=== PATIENT | female | born 1945 | race Two or more races ===

== ENCOUNTER 2017-10-10 07:14 | Outpatient (CLI) | payer MEDICARE, OTHER ==
[~2017-10-10 07:14] MED LIST: AMLO10TA2 PO; ATEN50TA PO; CALC500T71 PO; DICY10CA59 PO; FLUV50TA3 PO; NIAC-5 PO; OLOP5DRO RIGHTEYE; ONDA-25 PO; SIMV20TA6 PO
[2017-10-10] MEDS ORDERED: REGADENOSON 0.4 MG/5 ML DISP.SYRIN IVP ONE (08:30)
== END 2017-10-10 23:59 | disposition home or self-care (01) ==
LOC: NM 07:14
PROVIDERS: ATTEND Internal Medicine Interventional Cardiology
DX: I10 Essential (primary) hypertension (principal); R06.09 Other forms of dyspnea
CPT/HCPCS: 78452; A9502; J2785

== ENCOUNTER 2019-05-31 04:39 | Inpatient (IN) | payer MEDICARE, OTHER ==
[~2019-05-31] VITALS: Ht 154.9 cm; Wt 97.1 kg
[~2019-05-31 04:39] MED LIST changes: -AMLO10TA2 PO; +AMLO10TA7 PO; +CALC-1026 PO; -CALC500T71 PO; -ONDA-25 PO; +ONDA4TAB10 PO
[2019-05-31 04:50] VITALS: BP 131/73
--- NOTE | 2019-05-31 04:50 | NUR ---
CASH APPLICATIONS REPRESENTATIVE ADMITTING NOTE RECEIVED PATIENT IN UNIT VIA GURNEY, BROUGHT BY EMT. PATIENT A/OX4. PLACED ON TELE MONITOR; SR WITH HR 74 WITH OCCASIONAL PVCS. ON OXYGEN 2L VIA NASAL CANNULA, NO SOB AND RESPIRATORY DISTRESS NOTED, SATURATING 98%. IV SITE ON R AC 20G S/L, FLUSHING AND PATENT, SITE C/D/I. SAFETY MEASURES IN PLACE; CALL LIGHT WITHIN EASY REACH, BED IS LOCKED AND IN LOWEST POSITION, SIDE RAILS UP X2. ORIENTED PT TO ROOM. MADE AWARE OF PATIENT ARRIVAL. AWAITING FOR ORDERS. WILL CONT TO MONITOR PT CLOSELY.
[2019-05-31] MEDS ORDERED: CARB-93 PO (05:52)
[2019-05-31] MEDS ORDERED: MECL-102 PO (05:52)
[2019-05-31] MEDS ORDERED: OMEP20CA11 PO (05:52)
[2019-05-31] MEDS ORDERED: MEDR10TA10 PO (05:52)
[2019-05-31] MEDS ORDERED: DENO60DI SQ (05:55)
[2019-05-31] MEDS ORDERED: SERT50TA PO (05:55)
[2019-05-31] MEDS ORDERED: TRAM50TA2 PO (05:55)
--- NOTE | 2019-05-31 06:30 | NUR ---
MERCHANDISE FOR RESALE PURCHASING AGENT NOTES PAGED 3X. AWAITING FOR ORDERS.
--- NOTE | 2019-05-31 07:48 | NUR ---
NON LICENSED NUCLEAR EQUIPMENT OPERATOR CLOSING NOTES ENDORSED TO AM RN FOR LEWIS.
[2019-05-31 08:00] VITALS: BP 126/62
--- NOTE | 2019-05-31 08:00 | NUR ---
WOOD PROCESSING WORKER NOTES PT IN BED, AWAKE, ALERT AND ORIENTED, DENIES PAIN AT THIS TIME, STILL COMPLAINT OF DIZZINESS, NO HEADACHE OR N/V, CALL LIGHT WITHIN REACH, NEEDS ATTENDED.
[2019-05-31] MEDS ORDERED: MAGNESIUM HYDROXIDE 30 ML UDC PO PRN (08:30)
[2019-05-31] MEDS ORDERED: Z GUARD REMEDY 2 OZ OINT TP PRN (08:30)
[2019-05-31] MEDS ORDERED: ONDANSETRON HCL/PF 4 MG/2 ML VIAL IVP PRN (08:30)
[2019-05-31] MEDS ORDERED: HYDROCODONE/APAP 5/325MG 1 EACH TABLET PO PRN (08:30)
[2019-05-31] MEDS ORDERED: ZOLPIDEM TARTRATE 5 MG TABLET PO PRN (08:30)
[2019-05-31] MEDS ORDERED: ACETAMINOPHEN 325 MG TABLET PO PRN (08:30)
[2019-05-31] MEDS ORDERED: MAG HYDROX/AL HYDROX/SIMETH 30 ML UDC PO PRN (08:30)
[2019-05-31] MEDS ORDERED: DENOSUMAB 60 MG SQ SCH (09:00)
[2019-05-31] MEDS: PANTOPRAZOLE 40 MG TABLET.DR PO SCH (10:01)
[2019-05-31] MEDS: AMLODIPINE BESYLATE 10 MG TABLET PO SCH (10:02)
[2019-05-31] MEDS: SERTRALINE HCL 50 MG TABLET PO SCH (10:02)
[2019-05-31] MEDS: CARBIDOPA/LEVODOPA 25/100 MG 1 UDTAB PO SCH ×3 (10:02→17:25)
[2019-05-31] MEDS: CALCIUM CARBONATE (1250) 500 MG TABLET PO SCH ×2 (10:02→17:25)
[2019-05-31] MEDS: SIMVASTATIN 20 MG TABLET PO SCH (10:17)
[2019-05-31] MEDS: TRAMADOL HCL 50 MG TABLET PO SCH ×2 (10:20→17:25)
[2019-05-31 12:00] VITALS: BP 103/54
--- NOTE | 2019-05-31 13:00 | NUR ---
TURKISH LINE ATTENDANT NOTES PT IN BED, AWAKE, ALERT AND ORIENTED, NO COMPLAINT AT THIS TIME, NOT IN DISTRESS, SEEN BY DR. HENSON, COMPLIANT WITH CARE AND INTERVENTIONS, TOLERATING CURRENT DIET, CALL LIGHT WITHIN REACH, NEEDS ATTENDED.
[2019-05-31] MEDS: medroxyPROGESTERone ACET 5 MG TABLET PO SCH (13:04)
[2019-05-31 16:00] VITALS: BP_SYST 103; BP_SYST 110; BP_DIAS 54; BP_DIAS 68
--- NOTE | 2019-05-31 18:16 | NUR ---
CLIENT FINANCE ANALYST NOTES PT IN BED, AWAKE, ALERT AND ORIENTED, DENIES PAIN, NOT IN DISTRESS, WITH OCCASIONAL COMPLAINT OF DIZZINESS, INSTRUCTED PT NOT TO GET UP DUE TO RISK OF FALLING, VERBALIZED UNDERSTANDING, NO COMPLAINT OF HEADACHE, TOLERATES CURRENT DIET, CALL LIGHT WITHIN REACH, ALL NEEDS ATTENDED.
--- NOTE | 2019-05-31 19:45 | NUR ---
HEALTH CAREERS INSTRUCTOR NOTE: RECEIVED PT ON BED ALERT AND ORIENTED X3. ABLE TO MAKE NEEDS KNOWN. NO APPARENT DISTRESS NOTED. NO COMPLAINTS OF PAIN OR DISCOMFORT NOTED. ON 2LPM NASAL CANNULA, BREATHING EVEN AND UNLABORED WITH NORMAL RESPIRATIONS. ON TELE MONITOR SINUS RHYTHM HR 79 BPM. KEPT CLEAN, DRY AND COMFORTABLE. CALL LIGHT PLACED WITHIN REACH. SIDE RAILS X2. BED ALARM ON. BED LOCKED AND IN LOWEST POSITION. WILL CONTINUE TO MONITOR PT.
[2019-05-31 20:00] VITALS: BP 135/75
[2019-05-31] MEDS: FLUVOXAMINE MALEATE 50 MG TABLET PO SCH (21:50)
[2019-06-01] VITALS (7 sets, daily range): BP systolic 126–156; BP diastolic 51–79
--- NOTE | 2019-06-01 06:48 | NUR ---
AIR QUALITY TECHNICIAN NOTE: NO CHANGES NOTED THROUGHOUT THE SHIFT. NO APPARENT DISTRESS NOTED. DENIES PAIN AND DISCOMFORT AT THIS TIME. ON 2LPM NASAL CANNULA, NO SOB NOTED. ON TELE MONITOR SINUS RHYTHM HR 84BPM. KEPT CLEAN, DRY AND COMFORTABLE. SAFETY AND FALL PRECAUTIONS OBSERVATION NOTED. WILL ENDORSE TO DAY SHIFT RN FOR CONTINUITY OF CARE.
--- NOTE | 2019-06-01 07:20 | NUR ---
RN OPENING NOTES RECEIVED PATIENT ON BED ALERT AND ORIENTED X3, ABLE TO MAKE NEEDS KNOWN. NO APPARENT DISTRESS NOTED. NO COMPLAINTS OF PAIN OR DISCOMFORT NOTED. ON 2LPM NASAL CANNULA, BREATHING EVEN AND UNLABORED WITH NORMAL RESPIRATIONS. ON TELE MONITOR SINUS RHYTHM HR 81 WITH PVCs. KEPT CLEAN, DRY AND COMFORTABLE. CALL LIGHT PLACED WITHIN REACH. SIDE RAILS X2. BED ALARM ON. BED LOCKED AND IN LOWEST POSITION. WILL CONTINUE TO MONITOR ACCORDINGLY
[2019-06-01 07:26] LABS: BASOPHILS # (AUTO) 0.1 /CMM (0.0-0.2); BASOPHILS % (AUTO) 0.9 % (0.0-2.0); EOSINOPHILS % (AUTO) 6.2 % (0.0-6.0); HEMATOCRIT 40 % (33-45); HEMOGLOBIN 13.2 g/dL (11.5-14.8); LYMPHOCYTES # (AUTO) 1.4 /CMM (0.8-4.8); MEAN CORPUSCULAR HGB CONC 33 g/dl (31.0-36.0); MEAN CORPUSCULAR VOLUME 87 fL (82-100); MONOCYTES # (AUTO) 0.6 /CMM (0.1-1.30); MONOCYTES % (AUTO) 10.5 % (2.0-12.0); NEUTROPHILS # (AUTO) 3.3 /CMM (1.8-8.9); NEUTROPHILS % (AUTO) 57.4 % (43.0-81.0); PLATELET COUNT (AUTO) 125 /CMM (150-450); WHITE BLOOD COUNT (AUTO) 5.7 K/uL (4.3-11.0)
[2019-06-01 07:30] LABS: ALANINE AMINOTRANSFERASE 15 U/L (12-78); ALBUMIN 3.3 g/dL (3.4-5.0); ALKALINE PHOSPHATASE 80 U/L (46-116); ASPARTATE AMINOTRANSFERASE 13 U/L (15-37); BILIRUBIN,TOTAL 0.9 mg/dL (0.2-1.0); CALCIUM, SERUM 8.9 mg/dL (8.5-10.1); CARBON DIOXIDE 34 mmol/L (21-32); CHLORIDE 104 mmol/L (98-107); GLUCOSE 87 mg/dL (74-106); MAGNESIUM 1.9 mg/dL (1.8-2.4); PHOSPHORUS 4.2 mg/dL (2.5-4.9); POTASSIUM 3.5 mmol/L (3.5-5.1); SODIUM SERUM 142 mmol/L (136-145); UREA NITROGEN, BLOOD 11 mg/dL (7-18)
[2019-06-01 07:32] LABS: CHOLESTEROL 102 mg/dL (<200); HDL CHOLESTEROL 37 mg/dL (40-60); LDL 52 mg/dL (0-99); TRIGLYCERIDES 114 mg/dL (30-150)
[2019-06-01] MEDS: PANTOPRAZOLE 40 MG TABLET.DR PO SCH (08:28)
[2019-06-01] MEDS: SERTRALINE HCL 50 MG TABLET PO SCH (08:28)
[2019-06-01] MEDS: SIMVASTATIN 20 MG TABLET PO SCH (08:29)
[2019-06-01] MEDS: TRAMADOL HCL 50 MG TABLET PO SCH ×2 (08:29→16:05)
[2019-06-01] MEDS: CALCIUM CARBONATE (1250) 500 MG TABLET PO SCH ×2 (08:29→16:05)
[2019-06-01] MEDS: CARBIDOPA/LEVODOPA 25/100 MG 1 UDTAB PO SCH ×3 (08:29→16:05)
[2019-06-01] MEDS: AMLODIPINE BESYLATE 10 MG TABLET PO SCH (08:30)
[2019-06-01] MEDS: medroxyPROGESTERone ACET 5 MG TABLET PO SCH (08:31)
--- NOTE | 2019-06-01 10:29 | NUR ---
WOUND CARE CONSULT: PT PRESENTS WITH INTACT SKIN AND SOME DRYNESS TO ARMS AND LEGS, PRESENT ON ADMISSION. RECOMMENDATIONS MADE FOR SKIN PROTECTION. DISCUSSED WITH NURSING STAFF. PT IS CONTINENT AND INDEPENDENT WITH BED MOBILITY. WILL SEE PRN.
[2019-06-01] MEDS: MINERAL OIL/PETROLATUM,WHITE 120 GM JAR TP SCH (12:36)
[2019-06-01] MEDS: POTASSIUM CHLORIDE 20 MEQ TAB.PRT.SR PO SCH ×3 (12:36→14:42)
[2019-06-01] MEDS: FUROSEMIDE 40 MG/4 ML VIAL IV SCH ×2 (12:36→16:06)
[2019-06-01] MEDS: VALSARTAN 80 MG TABLET PO SCH (12:38)
--- NOTE | 2019-06-01 18:42 | NUR ---
RN CLOSING NOTES PATIENT IN STABLE CONDITION. ALL NEED ATTENDED AND PROVIDED. ALL DUE MEDICATIONS GIVEN ORDERED. ASSISTED WITH ADLS. KEPT PATIENT SAFE AND COMFORTABLE. BED IN LOW/LOCKED POSITION, SIDERAILS UPX2, CALL LIGHT IN REACH. WILL ENDORSED TO NIGHT RN FOR LEWIS.
--- NOTE | 2019-06-01 19:41 | NUR ---
REHAB THERAPIST NOTES RECEIVED PT ON BED. A/O X 4. ON ROOM AIR NO RESPIRATORY DISTRESS NOTED. IV ACCESS RACG 20 SL PATENT AND INTACT. HEAD OF BED ELEVATED. SIDE RAILS UP. CALL LIGHT WITHIN REACH. BED ALARM ON. WILL CONTINUE TO MONITOR PT CLOSELY.
[2019-06-01] MEDS: FLUVOXAMINE MALEATE 50 MG TABLET PO SCH (21:12)
[2019-06-02] VITALS: BP 135/80
[2019-06-02 04:00] VITALS: BP 117/70
[2019-06-02 06:26] LABS: BASOPHILS # (AUTO) 0.1 /CMM (0.0-0.2); EOSINOPHILS % (AUTO) 6.7 % (0.0-6.0); HEMATOCRIT 41 % (33-45); HEMOGLOBIN 13.5 g/dL (11.5-14.8); LYMPHOCYTES # (AUTO) 1.4 /CMM (0.8-4.8); LYMPHOCYTES % (AUTO) 24.6 % (20.0-44.0); MEAN CORPUSCULAR HGB CONC 33 g/dl (31.0-36.0); MEAN CORPUSCULAR VOLUME 87 fL (82-100); MONOCYTES # (AUTO) 0.6 /CMM (0.1-1.30); MONOCYTES % (AUTO) 11.3 % (2.0-12.0); NEUTROPHILS # (AUTO) 3.1 /CMM (1.8-8.9); NEUTROPHILS % (AUTO) 56.4 % (43.0-81.0); PLATELET COUNT (AUTO) 141 /CMM (150-450); RED BLOOD CELL COUNT(AUTO) 4.71 MIL/uL (4.0-5.2); WHITE BLOOD COUNT (AUTO) 5.6 K/uL (4.3-11.0)
[2019-06-02 06:45] LABS: ALANINE AMINOTRANSFERASE 22 U/L (12-78); ALBUMIN 3.4 g/dL (3.4-5.0); ALKALINE PHOSPHATASE 86 U/L (46-116); ASPARTATE AMINOTRANSFERASE 15 U/L (15-37); BILIRUBIN,TOTAL 0.9 mg/dL (0.2-1.0); CALCIUM, SERUM 8.7 mg/dL (8.5-10.1); CARBON DIOXIDE 34 mmol/L (21-32); CHLORIDE 101 mmol/L (98-107); CREATININE 1.1 mg/dL (0.6-1.3); GLUCOSE 84 mg/dL (74-106); MAGNESIUM 1.9 mg/dL (1.8-2.4); PHOSPHORUS 4.2 mg/dL (2.5-4.9); POTASSIUM 3.7 mmol/L (3.5-5.1); SODIUM SERUM 140 mmol/L (136-145); TOTAL PROTEIN, SERUM 6.4 g/dL (6.4-8.2); UREA NITROGEN, BLOOD 16 mg/dL (7-18)
--- NOTE | 2019-06-02 07:26 | NUR ---
MS RN NOTES NO ACUTE CHANGES NOTED DURING THE SHIFT. PROVIDED COMFORT AND SAFETY. WILL ENDORSE TO THE AM NURSE FOR CONTINUITY OF CARE.
[2019-06-02 08:00] VITALS: BP 127/74
--- NOTE | 2019-06-02 08:00 | NUR ---
RN OPENING NOTES RECEIVED PATIENT ON BED ALERT AND ORIENTED X3, ABLE TO MAKE NEEDS KNOWN. NO APPARENT DISTRESS NOTED. NO COMPLAINTS OF PAIN OR DISCOMFORT NOTED.BREATHING EVEN AND UNLABORED WITH NORMAL RESPIRATIONS. AMBULATES AD ALONSO WITH SLOWLY,STEADY GAIT.KEPT CLEAN, DRY AND COMFORTABLE. CALL LIGHT PLACED WITHIN REACH. SIDE RAILS X2. BED ALARM ON. BED LOCKED AND IN LOWEST POSITION. WILL CONTINUE TO MONITOR ACCORDINGLY
[2019-06-02] MEDS: CARBIDOPA/LEVODOPA 25/100 MG 1 UDTAB PO SCH ×3 (09:34→17:47)
[2019-06-02] MEDS: SERTRALINE HCL 50 MG TABLET PO SCH (09:35)
[2019-06-02] MEDS: CALCIUM CARBONATE (1250) 500 MG TABLET PO SCH ×2 (09:35→17:47)
[2019-06-02] MEDS: AMLODIPINE BESYLATE 10 MG TABLET PO SCH (09:35)
[2019-06-02] MEDS: SIMVASTATIN 20 MG TABLET PO SCH (09:35)
[2019-06-02] MEDS: TRAMADOL HCL 50 MG TABLET PO SCH ×2 (09:35→17:48)
[2019-06-02] MEDS: VALSARTAN 80 MG TABLET PO SCH (09:36)
[2019-06-02] MEDS: PANTOPRAZOLE 40 MG TABLET.DR PO SCH (09:42)
[2019-06-02] MEDS: MINERAL OIL/PETROLATUM,WHITE 120 GM JAR TP SCH (09:44)
[2019-06-02] MEDS: medroxyPROGESTERone ACET 5 MG TABLET PO SCH (09:45)
[2019-06-02 16:00] VITALS: BP 116/64
--- NOTE | 2019-06-02 19:00 | NUR ---
PT RESTING IN BED WATCHING TV DENYING ANY PAIN OR DISTRESS.CALL LIGHT PLACED WITHIN REACH.
[2019-06-02 20:00] VITALS: BP 136/60
[2019-06-02] MEDS: FLUVOXAMINE MALEATE 50 MG TABLET PO SCH (21:54)
[2019-06-02 22:00] VITALS: BP 136/60
[2019-06-03 04:00] VITALS: BP 114/60
[2019-06-03 07:01] LABS: BASOPHILS % (AUTO) 0.7 % (0.0-2.0); EOSINOPHILS % (AUTO) 5.4 % (0.0-6.0); HEMATOCRIT 40 % (33-45); HEMOGLOBIN 13.2 g/dL (11.5-14.8); LYMPHOCYTES # (AUTO) 1.4 /CMM (0.8-4.8); LYMPHOCYTES % (AUTO) 25.8 % (20.0-44.0); MEAN CORPUSCULAR HGB CONC 33 g/dl (31.0-36.0); MEAN CORPUSCULAR VOLUME 87 fL (82-100); MONOCYTES # (AUTO) 0.6 /CMM (0.1-1.30); MONOCYTES % (AUTO) 11.8 % (2.0-12.0); NEUTROPHILS % (AUTO) 56.3 % (43.0-81.0); PLATELET COUNT (AUTO) 133 /CMM (150-450); RED BLOOD CELL COUNT(AUTO) 4.59 MIL/uL (4.0-5.2); WHITE BLOOD COUNT (AUTO) 5.3 K/uL (4.3-11.0)
[2019-06-03 07:24] LABS: CALCIUM, SERUM 8.8 mg/dL (8.5-10.1); CARBON DIOXIDE 33 mmol/L (21-32); CHLORIDE 105 mmol/L (98-107); GLUCOSE 91 mg/dL (74-106); MAGNESIUM 2.1 mg/dL (1.8-2.4); PHOSPHORUS 3.8 mg/dL (2.5-4.9); SODIUM SERUM 143 mmol/L (136-145); UREA NITROGEN, BLOOD 17 mg/dL (7-18)
[2019-06-03 08:00] VITALS: BP 130/59
[2019-06-03] MEDS: CALCIUM CARBONATE (1250) 500 MG TABLET PO SCH (08:04)
[2019-06-03] MEDS: TRAMADOL HCL 50 MG TABLET PO SCH (08:05)
[2019-06-03] MEDS: PANTOPRAZOLE 40 MG TABLET.DR PO SCH (08:05)
[2019-06-03] MEDS: AMLODIPINE BESYLATE 10 MG TABLET PO SCH (08:05)
[2019-06-03] MEDS: SIMVASTATIN 20 MG TABLET PO SCH (08:05)
[2019-06-03] MEDS: SERTRALINE HCL 50 MG TABLET PO SCH (08:06)
[2019-06-03] MEDS: MINERAL OIL/PETROLATUM,WHITE 120 GM JAR TP SCH (08:06)
[2019-06-03] MEDS: CARBIDOPA/LEVODOPA 25/100 MG 1 UDTAB PO SCH ×2 (08:06→12:54)
[2019-06-03] MEDS: VALSARTAN 80 MG TABLET PO SCH (08:06)
[2019-06-03] MEDS: medroxyPROGESTERone ACET 5 MG TABLET PO SCH (08:07)
[2019-06-03 10:00] VITALS: BP 130/59
[2019-06-03] MEDS ORDERED: VALS160T2 PO (11:23)
--- NOTE | 2019-06-03 14:20 | NUR ---
PROCESSING REP NOTES PT STABLE AT DISCHARGE. IV AND ID REMOVED BEFORE DISCHARGE. ALL DISCHARGE PAPER WORK EXPLAINED, SIGNED, COPIED AND PROVIDED TO THE PATIENT. REPORT GIVEN TO BIENVENIDO AT [place]. ALL BELONGINGS TAKEN WITH PATIENT AT DISCHARGE. PT TAKEN VIA GURNEY BY 2 ELECTRICIAN SHIP. Addendum: 06/03/19 at 1514 by GISELA CHANCE RN PT REFUSED PICTURES AT DISCHARGE.
== END 2019-06-03 14:20 | DRG 308 ==
LOC: TELE1 04:39 → MEDSG1 06-02 05:07
PROVIDERS: ADMIT Family Medicine; ATTEND Nurse Practitioner Acute Care
DX: R00.1 Bradycardia, unspecified (principal); I50.33 Acute on chronic diastolic (congestive) heart failure; Z68.41 Body mass index [BMI] 40.0-44.9, adult; I11.0 Hypertensive heart disease with heart failure; D63.8 Anemia in other chronic diseases classified elsewhere; E87.6 Hypokalemia; E78.5 Hyperlipidemia, unspecified; F90.9 Attention-deficit hyperactivity disorder, unspecified type; F41.9 Anxiety disorder, unspecified; Z96.659 Presence of unspecified artificial knee joint; Z87.891 Personal history of nicotine dependence; T44.7X5A Adverse effect of beta-adrenoreceptor antagonists, initial encounter; Y92.89 Other specified places as the place of occurrence of the external cause; G20 Parkinson's disease; E66.9 Obesity, unspecified; J98.4 Other disorders of lung
CPT/HCPCS: 36415; 71045-TC; 80048-TC; 80053-TC; 80061-TC; 83735-TC; 84100-TC; 85025-TC; 87081-TC; 93307-TC; 93880-TC; G0378; J1940

== ENCOUNTER 2019-08-23 12:59 | Inpatient (IN) | payer MEDICARE, OTHER ==
[~2019-08-23] VITALS: Ht 154.9 cm; Wt 97.1 kg
[~2019-08-23 12:59] MED LIST changes: -ATEN50TA PO; +CARB-93 PO; +DENO60DI SQ; -DICY10CA59 PO; +MECL-102 PO; +MEDR10TA10 PO; -NIAC-5 PO; -OLOP5DRO RIGHTEYE; +OMEP20CA11 PO; -ONDA4TAB10 PO; +SERT50TA PO; +TRAM50TA2 PO; +VALS160T2 PO
--- NOTE | 2019-08-23 13:14 | NUR ---
pt marvin from facility for dizziness on and off, gen weakness, pt aaox4, -sob, nad noted, vss, pending md [place]
[2019-08-23] MEDS ORDERED: IV NS 0.9% 500 ML BAG IV ONE (13:30)
[2019-08-23 13:36] LABS: BASOPHILS # (AUTO) 0.1 /CMM (0.0-0.2); BASOPHILS % (AUTO) 1.8 % (0.0-2.0); EOSINOPHILS % (AUTO) 4.7 % (0.0-6.0); HEMATOCRIT 46 % (33-45); HEMOGLOBIN 15.4 g/dL (11.5-14.8); LYMPHOCYTES # (AUTO) 1.4 /CMM (0.8-4.8); LYMPHOCYTES % (AUTO) 21.1 % (20.0-44.0); MEAN CORPUSCULAR HGB CONC 34 g/dl (31.0-36.0); MEAN CORPUSCULAR VOLUME 87 fL (82-100); MONOCYTES # (AUTO) 0.5 /CMM (0.1-1.30); MONOCYTES % (AUTO) 7.6 % (2.0-12.0); NEUTROPHILS # (AUTO) 4.4 /CMM (1.8-8.9); NEUTROPHILS % (AUTO) 64.8 % (43.0-81.0); PLATELET COUNT (AUTO) 157 /CMM (150-450); RED BLOOD CELL COUNT(AUTO) 5.26 MIL/uL (4.0-5.2); WHITE BLOOD COUNT (AUTO) 6.8 K/uL (4.3-11.0)
[2019-08-23 13:47] LABS: CALCIUM, SERUM 9.7 mg/dL (8.5-10.1); CARBON DIOXIDE 30 mmol/L (21-32); CHLORIDE 102 mmol/L (98-107); CREATININE 1.1 mg/dL (0.6-1.3); GLUCOSE 111 mg/dL (74-106); POTASSIUM 3.7 mmol/L (3.5-5.1); SODIUM SERUM 140 mmol/L (136-145); UREA NITROGEN, BLOOD 9 mg/dL (7-18)
[2019-08-23 13:52] LABS: ALANINE AMINOTRANSFERASE 17 U/L (12-78); ALKALINE PHOSPHATASE 91 U/L (46-116); ASPARTATE AMINOTRANSFERASE 19 U/L (15-37); BILIRUBIN,DIRECT 0.2 mg/dL (0.0-0.2); BILIRUBIN,TOTAL 0.9 mg/dL (0.2-1.0); TOTAL PROTEIN, SERUM 7.2 g/dL (6.4-8.2)
--- NOTE | 2019-08-23 15:00 | NUR ---
CALLED NURSING SUP FOR BED.
--- NOTE | 2019-08-23 15:04 | NUR ---
PAGED [facility].
[2019-08-23] MEDS ORDERED: ATEN50TA PO (15:19)
[2019-08-23] MEDS ORDERED: FLUV50TA10 PO (15:19)
[2019-08-23] MEDS ORDERED: DICY10AM2 PO (15:19)
[2019-08-23] MEDS ORDERED: CALC500T51 PO (15:19)
[2019-08-23] MEDS ORDERED: HYDR59LO5 TP (15:19)
--- NOTE | 2019-08-23 15:20 | NUR ---
NURSING SUP GAVE BED [id number].
--- NOTE | 2019-08-23 15:23 | NUR ---
[facility] CALLED FOR RICHIE.
[2019-08-23] MEDS ORDERED: MAGNESIUM HYDROXIDE 30 ML UDC PO PRN (16:00)
[2019-08-23] MEDS ORDERED: ACETAMINOPHEN 325 MG TABLET PO PRN (16:00)
[2019-08-23] MEDS ORDERED: Z GUARD REMEDY 2 OZ OINT TP PRN (16:00)
[2019-08-23] MEDS ORDERED: ZOLPIDEM TARTRATE 5 MG TABLET PO PRN (16:00)
[2019-08-23] MEDS ORDERED: ONDANSETRON HCL/PF 4 MG/2 ML VIAL IVP PRN (16:00)
[2019-08-23] MEDS ORDERED: MAG HYDROX/AL HYDROX/SIMETH 30 ML UDC PO PRN (16:00)
[2019-08-23] MEDS ORDERED: HYDROCODONE/APAP 5/325MG 1 EACH TABLET PO PRN (16:00)
[2019-08-23 16:40] VITALS: BP 148/80
--- NOTE | 2019-08-23 16:44 | NUR ---
report given to erich ibarra for luna pt lamin be transported to 3rd floor
[2019-08-23] MEDS ORDERED: DICYCLOMINE HCL INJ 20 MG/2 ML AMPUL IM SCH (17:00)
[2019-08-23] MEDS ORDERED: HYDROCORTISONE 2.5% LOTION 59 ML BOTTLE TP SCH (17:00)
[2019-08-23] MEDS: CALCIUM CARBONATE (1250) 500 MG TABLET PO SCH (17:14)
--- NOTE | 2019-08-23 17:52 | NUR ---
CREATIVE TECHNOLOGIST ADMITTING NOTES ADMITTED A 74 Y/O FEMALE TO UNIT VIA [facility] ACCOMPANIED BY ESofiaR NURSE TIFF. A/O X4. ABLE TO MAKE NEEDS KNOWN AND AMBULATORY WITH FOUR WHEEL WALKER. PT ORIENTED TO ROOM AND STAFF. V/S TAKEN AND RECORDED. PT ON 02 VIA N/C @ 2LPM, TOLERATING WELL WITH NO SOB NOTED. PLACED ON TELE MONITOR WITH CURRENT READING OF SINUS TACH WITH UNIFOCAL BIGEMINI WITH HR OF 102, NO C/O CARDIAC DISTRESS VOICED AT THIS TIME. PT WITH IV ACCESS ON R AC G#20 INTACT, PATENT AND FLUSHES WELL WITH DRESSING C/D/I. SAFETY MEASURES INITIATED: CALL LIGHT PLACED WITHIN EASY REACH OF PT. BED IS LOCKED AND IN LOWEST POSSIBLE POSITION WITH SIDE RAILS UP X2. MADE AWARE OF PATIENT ARRIVAL AND ORDERS MADE. WILL CONT TO MONITOR PT CLOSELY.
--- NOTE | 2019-08-23 18:29 | NUR ---
RN NOTES DR HENSON CAME TO UNIT, INFORMED HIM THAT PT'S TELEMONITORING SHOWS SINUS TACH WITH HR OF [address] HENSON WENT TO SEE, TALK AND EVALUATE PT. DR HENSON SAID THAT SHE IS FOR CARDIAC CONSULT BY DR SCOTT. WILL CONTINUE TO MONITOR.
--- NOTE | 2019-08-23 18:41 | NUR ---
MEDICAL ARTIST CLOSING NOTES PT AWAKE AND RESTING IN BED AT MODERATE HIGH BACKREST POSITION. A/O X4. ABLE TO MAKE NEEDS KNOWN AND ABLE TO AMBULATE WITH FOUR WHEEL WALKER. ON 02 VIA N/C AT 2LPM, TOLERATING WELL WITH NO SOB NOTED. ON TELE MONITORING SHOWS SINUS TACH WITH UNIFOCAL BIGEMINI WITH HR OF 95-110, NO C/O CARDIAC DISTRESS VOICED. IV ACCESS ON R AC G#20 INTACT, PATENT AND FLUSHES WELL WITH DRESSING C/D/I. SAFETY MEASURES KEPT IN PLACE: CALL LIGHT WITHIN EASY REACH OF PT. BED IS LOCKED AND IN LOWEST POSSIBLE POSITION WITH SIDE RAILS UP X2. WILL ENDORSE TO MITER CUTTER NURSE FOR LEWIS.
--- NOTE | 2019-08-23 19:30 | NUR ---
SOLDERER ASSEMBLY REPAIR OPENING NOTES RECEIVED PATIENT IN BED AWAKE, ALERT AND ORIENTED X4, VERBALLY RESPONSIVE, ABLE TO MAKE NEEDS KNOWN. SR WITH BIGEMINY ON TELE MONITOR. BREATHING EVEN AND UNLABORED. NO SOB NOTED. ON 2LPM NC. DENIES PAIN OR DISCOMFORT. DENIES N/V. IV ON RIGHT AC INTACT AND PATENT. SKIN DRY AND WARM TO TOUCH. AFEBRILE. ALL OTHER NEEDS ATTENDED TO. SAFETY MEASURES IN PLACE. CALL LIGHT WITHIN REACH. WILL CONTINUE TO MONITOR.
[2019-08-23 20:00] VITALS: BP 150/82
[2019-08-24] VITALS (7 sets, daily range): BP systolic 133–179; BP diastolic 66–86
--- NOTE | 2019-08-24 06:43 | NUR ---
SAND SYSTEM OPERATOR CLOSING NOTES PATIENT RESTING IN BED. NO ACUTE CHANGES THROUGHOUT SHIFT. SR WITH BIGEMINY ON TELE MONITOR. BREATHING EVEN AND UNLABORED. NO SOB NOTED. ON 2LPM NC. DENIES PAIN OR DISCOMFORT. DENIES N/V. IV ON RIGHT AC INTACT AND PATENT. ALL OTHER NEEDS ATTENDED TO. SAFETY MEASURES IN PLACE. CALL LIGHT WITHIN REACH. WILL ENDORSE TO ONCOMING NURSE FOR LEWIS.
[2019-08-24 07:26] LABS: BASOPHILS # (AUTO) 0.1 /CMM (0.0-0.2); BASOPHILS % (AUTO) 0.9 % (0.0-2.0); EOSINOPHILS % (AUTO) 5.5 % (0.0-6.0); HEMATOCRIT 42 % (33-45); HEMOGLOBIN 13.7 g/dL (11.5-14.8); LYMPHOCYTES # (AUTO) 1.4 /CMM (0.8-4.8); LYMPHOCYTES % (AUTO) 22.7 % (20.0-44.0); MEAN CORPUSCULAR HGB CONC 33 g/dl (31.0-36.0); MEAN CORPUSCULAR VOLUME 86 fL (82-100); MONOCYTES # (AUTO) 0.5 /CMM (0.1-1.30); MONOCYTES % (AUTO) 9.2 % (2.0-12.0); NEUTROPHILS # (AUTO) 3.7 /CMM (1.8-8.9); NEUTROPHILS % (AUTO) 61.7 % (43.0-81.0); PLATELET COUNT (AUTO) 128 /CMM (150-450); RED BLOOD CELL COUNT(AUTO) 4.81 MIL/uL (4.0-5.2)
[2019-08-24 07:52] LABS: CALCIUM, SERUM 8.7 mg/dL (8.5-10.1); MAGNESIUM 1.9 mg/dL (1.8-2.4); PHOSPHORUS 3.6 mg/dL (2.5-4.9); POTASSIUM 3.9 mmol/L (3.5-5.1)
[2019-08-24] MEDS: SIMVASTATIN 20 MG TABLET PO SCH (09:00)
[2019-08-24] MEDS: CALCIUM CARBONATE (1250) 500 MG TABLET PO SCH ×3 (09:00→18:24)
[2019-08-24] MEDS: HYDROCORTISONE 2.5% CREAM 28.4 GM TUBE TP SCH ×2 (09:12→18:25)
[2019-08-24] MEDS: VALSARTAN 80 MG TABLET PO SCH (09:13)
[2019-08-24] MEDS: ENOXAPARIN SODIUM 40 MG/0.4 ML DISP.SYRIN SQ SCH (10:45)
[2019-08-24] MEDS: METOPROLOL TARTRATE 25 MG TABLET PO SCH ×2 (11:23→21:12)
--- NOTE | 2019-08-24 19:10 | NUR ---
LOCK AND DAM REPAIRER NOTE RECEIVED PT IN STABLE CONDITION A/O X4, CURRENTLY IN BED SPEAKING ON THE PHONE. NO SIGNS OF SOB OR DISTRESS, NO C/O PAIN OR N/V. TELE MONITOR: SINUS 103 WITH BIGEMINY NOTED. IV IN RAC #[address] S/L. ALL CURRENT NEEDS ATTENDED TO. BED LOW, LOCKED, UPPER RAILS UP, AND CALL LIGHT WITHIN REACH. WILL CONT. TO MONITOR.
--- NOTE | 2019-08-25 06:24 | NUR ---
MS RN NOTE PT REMAINS IN STABLE CONDITION A/O X4, CURRENTLY IN BED RESTING. NO SIGNS OF SOB OR DISTRESS, NO C/O PAIN OR N/V. TELE MONITOR: SINUS 100 WITH BIGEMINY NOTED. IV IN RAC #[address] S/L. ALL CURRENT NEEDS ATTENDED TO. BED LOW, LOCKED, UPPER RAILS UP, AND CALL LIGHT WITHIN REACH. WILL CONT. TO MONITOR AND ENDORSE TO NEXT SHIFT FOR LEWIS.
[2019-08-25 06:36] LABS: BASOPHILS # (AUTO) 0.1 /CMM (0.0-0.2); BASOPHILS % (AUTO) 0.9 % (0.0-2.0); EOSINOPHILS % (AUTO) 5.3 % (0.0-6.0); HEMATOCRIT 45 % (33-45); HEMOGLOBIN 14.8 g/dL (11.5-14.8); LYMPHOCYTES # (AUTO) 1.2 /CMM (0.8-4.8); LYMPHOCYTES % (AUTO) 20.8 % (20.0-44.0); MEAN CORPUSCULAR HGB CONC 33 g/dl (31.0-36.0); MEAN CORPUSCULAR VOLUME 86 fL (82-100); MONOCYTES # (AUTO) 0.5 /CMM (0.1-1.30); MONOCYTES % (AUTO) 8.6 % (2.0-12.0); NEUTROPHILS # (AUTO) 3.6 /CMM (1.8-8.9); NEUTROPHILS % (AUTO) 64.4 % (43.0-81.0); PLATELET COUNT (AUTO) 139 /CMM (150-450); RED BLOOD CELL COUNT(AUTO) 5.22 MIL/uL (4.0-5.2); WHITE BLOOD COUNT (AUTO) 5.6 K/uL (4.3-11.0)
[2019-08-25 06:47] LABS: CALCIUM, SERUM 9.4 mg/dL (8.5-10.1); CREATININE 0.9 mg/dL (0.6-1.3); POTASSIUM 4.7 mmol/L (3.5-5.1)
[2019-08-25 08:00] VITALS: BP 156/71
--- NOTE | 2019-08-25 08:00 | NUR ---
MS RN NOTE PT REMAINS IN STABLE CONDITION A/O X4, CURRENTLY IN BED RESTING EATING BREAKFAST. DENIES SOB OR DISTRESS,SEEN BY DR MOY (CARDIO) NO C/O PAIN OR N/V. TELE MONITOR: SINUS 100 WITH BIGEMINY NOTED. IV IN RAC #[address] S/L. BED LOW, LOCKED, UPPER RAILS UP, AND CALL LIGHT WITHIN REACH. WILL CONT. TO MONITOR
[2019-08-25] MEDS: CALCIUM CARBONATE (1250) 500 MG TABLET PO SCH ×3 (08:53→17:43)
[2019-08-25] MEDS: SIMVASTATIN 20 MG TABLET PO SCH (08:54)
[2019-08-25] MEDS: METOPROLOL TARTRATE 25 MG TABLET PO SCH ×2 (08:54→21:31)
[2019-08-25] MEDS: VALSARTAN 80 MG TABLET PO SCH (08:55)
[2019-08-25] MEDS: ENOXAPARIN SODIUM 40 MG/0.4 ML DISP.SYRIN SQ SCH (08:56)
[2019-08-25] MEDS: HYDROCORTISONE 2.5% CREAM 28.4 GM TUBE TP SCH ×2 (08:57→17:44)
--- NOTE | 2019-08-25 11:41 | NUR ---
WOUND CARE CONSULT: PT PRESENTS MOSTLY CONTINENT AND INDEPENDENT WITH BED MOBILITY. PT HAS MOISTURE TO SKIN FOLDS AND NOTED TO HAVE RED SPOTS ON CHEST/NECK AREA, PRESENT ON ADMISSION. DEFER TO MD FOR RED SPOTS. RECOMMENDATIONS MADE FOR SKIN PROTECTION. DISCUSSED WITH NURSING STAFF. WILL SEE PRN. CURRENT MORELIA SCORE IS 20. Addendum: 08/25/19 at 1142 by MADISON DE LA GARZA WNDNU Amended: Links added.
[2019-08-25 16:00] VITALS: BP 133/72
--- NOTE | 2019-08-25 19:18 | NUR ---
DISCHARGE TO SNF ON HOLD PER TOOL TENDER.PT DENIES ANY PAIN OR DISTRESS.PT WATCHING TV.CALL LIGHT PLACED WITHIN REACH.
--- NOTE | 2019-08-25 19:51 | NUR ---
RN OPENING NOTES RECEIVED PT IN BED, AWAKE ALERT ORIENTED X4, BREATHING EVEN AND UNLABORED ON 2L O2 NC, IN NO APPARENT PAIN OR DISCOMFORT AT THIS TIME, IV ACCESS ON THE R AC 20G SL. BED IN LOWEST LOCKED POSITION, CALL LIGHT WITHIN REACH AT ALL TIMES, WILL CONTINUE TO MONITOR FREQUENTLY.
[2019-08-25] MEDS ORDERED: FLUVOXAMINE MALEATE 50 MG TABLET PO SCH (22:00)
[2019-08-26 00:24] VITALS: BP 128/59
[2019-08-26 05:22] VITALS: BP 124/72
--- NOTE | 2019-08-26 06:32 | NUR ---
RN CLOSING NOTES PT REMAINS IN BED, AWAKE ALERT ORIENTED X4, BREATHING EVEN AND UNLABORED ON 2L O2 NC, IN NO APPARENT PAIN OR DISCOMFORT AT THIS TIME, IV ACCESS ON THE R AC 20G SL. BED IN LOWEST LOCKED POSITION, CALL LIGHT WITHIN REACH AT ALL TIMES, WILL ENDORSE TO DAY NURSE FOR LEWIS
[2019-08-26 07:00] VITALS: BP 130/58
[2019-08-26 08:00] VITALS: BP 130/58
--- NOTE | 2019-08-26 08:00 | NUR ---
MS RN OPENING NOTES RECEIVED PT IN BED, AWAKE ALERT ORIENTED X4, BREATHING EVEN AND UNLABORED ON 2L O2 NC, DENIES PAIN OR DISCOMFORT , IV ACCESS ON THE R AC 20G SL. BED IN LOWEST LOCKED POSITION, CALL LIGHT WITHIN REACH AT ALL TIMES, WILL CONTINUE TO MONITOR FREQUENTLY.
[2019-08-26] MEDS: VALSARTAN 80 MG TABLET PO SCH (08:46)
[2019-08-26 08:47] VITALS: BP 130/58
[2019-08-26] MEDS: METOPROLOL TARTRATE 25 MG TABLET PO SCH (08:47)
[2019-08-26] MEDS: CALCIUM CARBONATE (1250) 500 MG TABLET PO SCH ×2 (08:49→12:56)
[2019-08-26] MEDS: SIMVASTATIN 20 MG TABLET PO SCH (08:49)
[2019-08-26] MEDS: ENOXAPARIN SODIUM 40 MG/0.4 ML DISP.SYRIN SQ SCH (08:50)
[2019-08-26] MEDS: HYDROCORTISONE 2.5% CREAM 28.4 GM TUBE TP SCH (10:11)
--- NOTE | 2019-08-26 16:03 | NUR ---
DISCHARGE PT TO [facility] VIA AMBULANCE WITH NO C/O OF PAIN OR DISTRESS.WITH STABLE V/S.IV H/L REMOVED TO RT AC WITHOUT BLEEDING NOTED.RE[facility].
== END 2019-08-26 16:00 | DRG 309 ==
LOC: ER 13:04 → TELE 15:24 → MED 08-26 09:52
PROVIDERS: ADMIT Family Medicine; ATTEND Nurse Practitioner Acute Care
DX: I49.8 Other specified cardiac arrhythmias (principal); I50.32 Chronic diastolic (congestive) heart failure; Z68.41 Body mass index [BMI] 40.0-44.9, adult; I11.0 Hypertensive heart disease with heart failure; E78.5 Hyperlipidemia, unspecified; D63.8 Anemia in other chronic diseases classified elsewhere; F90.9 Attention-deficit hyperactivity disorder, unspecified type; F41.9 Anxiety disorder, unspecified; Z96.651 Presence of right artificial knee joint; Z87.891 Personal history of nicotine dependence; R00.8 Other abnormalities of heart beat; G20 Parkinson's disease; I49.3 Ventricular premature depolarization; E66.01 Morbid (severe) obesity due to excess calories; F42.9 Obsessive-compulsive disorder, unspecified; F32.9 Major depressive disorder, single episode, unspecified
CPT/HCPCS: 36415; 70450-TC; 71045-TC; 80048-TC; 80061-TC; 80076-TC; 83735-TC; 84100-TC; 84443-TC; 84484-TC; 85025-TC; 85730-TC; 87081-TC; 97116-TC; 97530-TC; G0378; J0500; J1650

== ENCOUNTER 2020-05-23 18:25 | Inpatient (IN) | payer MEDICARE, OTHER ==
[~2020-05-23] VITALS: Ht 154.9 cm; Wt 99.3 kg
[~2020-05-23 18:25] MED LIST changes: -AMLO10TA7 PO; -CALC-1026 PO; +CALC500T51 PO; -CARB-93 PO; -DENO60DI SQ; +DICY10AM2 PO; +FLUV50TA10 PO; -FLUV50TA3 PO; +HYDR59LO5 TP; -MECL-102 PO; -MEDR10TA10 PO; -OMEP20CA11 PO; -SERT50TA PO; +SIMV-46 PO; -SIMV20TA6 PO; -TRAM50TA2 PO; -VALS160T2 PO
--- NOTE | 2020-05-23 18:33 | NUR ---
Note fredrick in EDM - 05/23/20 at 1858 by [email or web address] PT BIB RA WITH A C/O DIZZINESS FROM [facility]. PT AMBULATED TO ER 11 WITH A STEADY GAIT.
--- NOTE | 2020-05-23 18:33 | NUR ---
PT BIB WITH A C/O DIZZINESS FROM [facility]. [facility]. PT AMBULATED TO ER 11 WITH A STEADY GAIT.
[2020-05-23 19:04] LABS: BASOPHILS # (AUTO) 0.1 /CMM (0.0-0.2); BASOPHILS % (AUTO) 1.4 % (0.0-2.0); EOSINOPHILS % (AUTO) 5.3 % (0.0-6.0); HEMATOCRIT 43 % (33-45); HEMOGLOBIN 14.2 g/dL (11.5-14.8); LYMPHOCYTES # (AUTO) 1.3 /CMM (0.8-4.8); LYMPHOCYTES % (AUTO) 19.3 % (20.0-44.0); MEAN CORPUSCULAR HGB CONC 33 g/dl (31.0-36.0); MEAN CORPUSCULAR VOLUME 86 fL (82-100); MONOCYTES # (AUTO) 0.6 /CMM (0.1-1.30); MONOCYTES % (AUTO) 8.6 % (2.0-12.0); NEUTROPHILS # (AUTO) 4.5 /CMM (1.8-8.9); NEUTROPHILS % (AUTO) 65.4 % (43.0-81.0); PLATELET COUNT (AUTO) 162 /CMM (150-450); RED BLOOD CELL COUNT(AUTO) 4.98 MIL/uL (4.0-5.2); WHITE BLOOD COUNT (AUTO) 6.8 K/uL (4.3-11.0)
--- NOTE | 2020-05-23 19:05 | NUR ---
CXR IN PROGRESS AT THE BEDSIDE.
--- NOTE | 2020-05-23 19:10 | NUR ---
PT'S O2 SAT IS 91-93% ON RA. PT WAS PLACED ON 2L O2 VIA NC.
[2020-05-23 19:13] LABS: CALCIUM, SERUM 9.4 mg/dL (8.5-10.1); CARBON DIOXIDE 31 mmol/L (21-32); CHLORIDE 103 mmol/L (98-107); CREATININE 1.3 mg/dL (0.6-1.3); GLUCOSE 135 mg/dL (74-106); POTASSIUM 3.5 mmol/L (3.5-5.1); SODIUM SERUM 141 mmol/L (136-145); UREA NITROGEN, BLOOD 18 mg/dL (7-18)
[2020-05-23 19:25] LABS: ALANINE AMINOTRANSFERASE 40 U/L (12-78); ALBUMIN 3.9 g/dL (3.4-5.0); ALKALINE PHOSPHATASE 86 U/L (46-116); ASPARTATE AMINOTRANSFERASE 26 U/L (15-37); B-TYPE NATRIURETIC PEPTIDE 887 PG/ML (0-125); BILIRUBIN,DIRECT 0.2 mg/dL (0.0-0.2); BILIRUBIN,TOTAL 0.5 mg/dL (0.2-1.0)
[2020-05-23 20:25] LABS: THYROID STIMULATING HORMONE 2.226 uIU/mL (0.358-3.74)
--- NOTE | 2020-05-23 20:42 | NUR ---
CALLING LAB RE: MAG RESULT STILL PENDING.
--- NOTE | 2020-05-23 20:56 | NUR ---
PT RETURNED FROM CT.
--- NOTE | 2020-05-23 21:23 | NUR ---
CALLED [facility], CHEST CT IS TO BE READ NEXT
--- NOTE | 2020-05-23 22:15 | NUR ---
PT TO BE ADMITTED.
[2020-05-23] MEDS ORDERED: FUROSEMIDE 20 MG/2 ML VIAL IV ONE (22:30)
[2020-05-23] MEDS ORDERED: FUROSEMIDE 20 MG/2 ML VIAL ONE (22:42)
--- NOTE | 2020-05-23 23:13 | NUR ---
COVID SWAB COLLECTED AND SENT TO LAB
[2020-05-23] MEDS ORDERED: ONDANSETRON HCL/PF 4 MG/2 ML VIAL IVP PRN (23:30)
[2020-05-23] MEDS ORDERED: MAGNESIUM HYDROXIDE 30 ML UDC PO PRN (23:30)
[2020-05-23] MEDS ORDERED: ENOXAPARIN SODIUM 40 MG/0.4 ML DISP.SYRIN SQ SCH (23:30)
[2020-05-23] MEDS ORDERED: Z GUARD REMEDY 2 OZ OINT TP PRN (23:30)
[2020-05-23] MEDS ORDERED: MAG HYDROX/AL HYDROX/SIMETH 30 ML UDC PO PRN (23:30)
[2020-05-23] MEDS ORDERED: ACETAMINOPHEN 325 MG TABLET PO PRN (23:30)
--- NOTE | 2020-05-23 23:34 | NUR ---
BED ASSIGNMENT 311-2
--- NOTE | 2020-05-23 23:34 | NUR ---
PT IS GOING TO TELE 311-2. NALLELY SOTOMAYOR TO CALL BACK.
[2020-05-24 00:25] VITALS: BP 133/71
--- NOTE | 2020-05-24 00:45 | NUR ---
FOLDING MACHINE SETTER NOTE: RECEIVED PATIENT FROM ER, NO ACUTE DISTRESS NOTED. BREATHING EVEN AND UNLABORED, NO SOB NOTED AT THIS TIME. IV TO LAC IN PLACE. TELE MONITOR CONNECTED. PATIENT COMPLAINED OF EPISODES OF DIARRHEA. INFORMED WE NEED TO COLLECT STOOL WHEN AVAILABLE FOR R/O CIFF. ORIENTED PATIENT TO ROOM AND USE OF CALL LIGHT. BED LOCKED AND IN LOWEST POSITION, CALL LIGHT IN REACH. WILL CONTINUE TO MONITOR.
[2020-05-24] MEDS ORDERED: FLUV50TA10 PO (01:08)
[2020-05-24] MEDS ORDERED: SIMV-46 PO (01:08)
[2020-05-24] MEDS ORDERED: CALC500T51 PO (01:08)
[2020-05-24] MEDS ORDERED: METO25TA6 PO (01:08)
[2020-05-24] MEDS ORDERED: SERT100T PO (01:08)
[2020-05-24] MEDS ORDERED: AMLO10TA7 PO (01:08)
[2020-05-24] MEDS ORDERED: CARB-93 PO (01:08)
--- NOTE | 2020-05-24 06:30 | NUR ---
MASTER TECHNICIAN NOTE: PATIENT RESTING IN BED, NO ACUTE DISTRESS NOTED. BREATHING EVEN AND UNLABORED, NO SOB NOTED AT THIS TIME. IV TO LAC IN PLACE. TELE READING SR 74 WITH BIGEMITY. BED LOCKED AND IN LOWEST POSITION, CALL LIGHT IN REACH. WILL ENDORSE TO DAY NURSE TO CONTINUE WITH PLAN OF CARE.
[2020-05-24 07:02] LABS: BASOPHILS # (AUTO) 0.1 /CMM (0.0-0.2); BASOPHILS % (AUTO) 0.8 % (0.0-2.0); EOSINOPHILS % (AUTO) 5.4 % (0.0-6.0); HEMATOCRIT 43 % (33-45); HEMOGLOBIN 14.3 g/dL (11.5-14.8); LYMPHOCYTES # (AUTO) 1.1 /CMM (0.8-4.8); LYMPHOCYTES % (AUTO) 17.8 % (20.0-44.0); MEAN CORPUSCULAR HGB CONC 33 g/dl (31.0-36.0); MEAN CORPUSCULAR VOLUME 84 fL (82-100); MONOCYTES # (AUTO) 0.5 /CMM (0.1-1.30); MONOCYTES % (AUTO) 8.4 % (2.0-12.0); NEUTROPHILS % (AUTO) 67.6 % (43.0-81.0); PLATELET COUNT (AUTO) 141 /CMM (150-450); RED BLOOD CELL COUNT(AUTO) 5.14 MIL/uL (4.0-5.2)
[2020-05-24 07:10] LABS: CALCIUM, SERUM 9.2 mg/dL (8.5-10.1); CARBON DIOXIDE 33 mmol/L (21-32); CHLORIDE 102 mmol/L (98-107); CREATININE 1.1 mg/dL (0.6-1.3); GLUCOSE 95 mg/dL (74-106); PHOSPHORUS 3.4 mg/dL (2.5-4.9); POTASSIUM 3.4 mmol/L (3.5-5.1); SODIUM SERUM 140 mmol/L (136-145); UREA NITROGEN, BLOOD 16 mg/dL (7-18)
[2020-05-24 07:22] LABS: CHOLESTEROL 132 mg/dL (<200); HDL CHOLESTEROL 48 mg/dL (40-60); LDL 61 mg/dL (0-99); THYROID STIMULATING HORMONE 2.032 uIU/mL (0.358-3.74); TRIGLYCERIDES 228 mg/dL (30-150)
--- NOTE | 2020-05-24 07:30 | NUR ---
SWIMMER Open Notes Patient is A/O x 4. Alert and awake Patient is in bed with no signs of distress with 2L nasal cannula. IV L AC # 20G SL intact and patent. Safety measures are being applied with bed in low position, side rails up x 2 for safety. Call light within reach will continue to monitor.
[2020-05-24 08:00] VITALS: BP 121/80
[2020-05-24] MEDS ORDERED: LOSA50TA39 MT (08:20)
[2020-05-24] MEDS: LOSARTAN POTASSIUM 50 MG TABLET PO SCH (09:00)
[2020-05-24] MEDS: AMLODIPINE BESYLATE 10 MG TABLET PO SCH (09:00)
[2020-05-24] MEDS: METOPROLOL TARTRATE 25 MG TABLET PO SCH ×2 (09:00→17:00)
--- NOTE | 2020-05-24 09:00 | NUR ---
RN Notes Blood Pressure medication were not administered d/t low HR. BP 128/66 HR 41.
[2020-05-24] MEDS: SIMVASTATIN 20 MG TABLET PO SCH (09:46)
[2020-05-24] MEDS: FUROSEMIDE 40 MG/4 ML VIAL IV SCH ×3 (09:46→16:41)
[2020-05-24] MEDS: CALCIUM CARBONATE (1250) 500 MG TABLET PO SCH ×3 (09:46→16:35)
[2020-05-24] MEDS: POTASSIUM CHLORIDE 20 MEQ TAB.PRT.SR PO SCH ×3 (09:46→11:00)
[2020-05-24] MEDS: SERTRALINE HCL 50 MG TABLET PO SCH (09:49)
[2020-05-24 10:12] LABS: MAGNESIUM 2.1 mg/dL (1.8-2.4)
[2020-05-24 10:20] LABS: ABG BASE EXCESS 2.3 mmol/L; ABG OXYGEN SATURATION 97.2 % (92.0-98.5); ABG PCO2 41.3 mmHg (35.0-45.0); ABG PO2 89.4 mmHg (75.0-100.0); AaDO2 61.5 mmHg; COHb 0.7 % (0.5-1.5); MetHb 0.1 % (0.0-1.5); O2Hb 96.4 % (94.0-97.0); SITE, ABG Left Radial; VENT MODE, BG 2L NC
--- NOTE | 2020-05-24 12:21 | NUR ---
RN NOTES LAST DOSE OF POTASSIUM NOT ADMINISTERED, TIMED OUT FROM OMNICELL. WILL RE ORDER.
[2020-05-24] MEDS ORDERED: POTASSIUM CHLORIDE 20 MEQ TAB.PRT.SR PO ONE (12:30)
[2020-05-24 16:00] VITALS: BP 148/72
--- NOTE | 2020-05-24 17:00 | NUR ---
RN NOTES BLOOD PRESSURE NOT ADMINISTERED D/T LOW HEART RATE.
--- NOTE | 2020-05-24 18:55 | NUR ---
GUYLINE OPERATOR CLOSING NOTES PATIENT IS A/O X 4 WITH NO SIGNS OF DISTRESS ON 2L OF NASAL CANNULA. IV R HAND INTACT AND PATENT AND R UA MIDLINE INTACT AND PATENT. ARIAS CATHETER IN PLACE AND INTACT. SCHEDULED MEDICATION WERE GIVEN AND TOLERATED WELL. SAFETY MEASURED ARE APPLIED BED IS IN LOCK POSITION LOCKED AND SIDE RAILS UP X 2 FOR SAFETY. CALL LIGHT WITHIN REACH. WILL ENDORSE TO THE NEXT SHIFT. Addendum: 05/24/20 at 1900 by BRITTANI MEYER RN PLEASE DISREGARD ABOVE NOTE.
--- NOTE | 2020-05-24 19:01 | NUR ---
FLOOR ASSEMBLER CLOSED NOTES PATIENT IS A/O X 4. IN BED RESTING WITH NO SIGNS OF DISTRESS WITH 2L OF NASAL CANNULA. IV L UA INTACT AND PATENT SL. SCHEDULED MEDICATIONS WERE GIVEN AND TOLERATED WELL. ATE BREAKFAST, LUNCH AND DINNER ABOUT 75% AND TOLERATED WELL. BE IS IN LOW POSITION LOCKED WITH SIDE RAILS UP X 2 FOR SAFETY. CALL LIGHT WITHIN REACH. WILL ENDORSE TO THE NEXT NURSE.
--- NOTE | 2020-05-24 19:57 | NUR ---
EXOTIC DANCER OPENING NOTES PATIENT RECEIVED RESTING IN BED A/O X 4. ON 2L OF O2 WITH BREATHING EVEN AND UNLABORED, NO SOB NOTED. NO SIGNS OF ACUTE DISTRESS. NO COMPLAINTS OF PAIN OR DISCOMFORT. IV LOCATED ON L AC #20 SL. TELE MONITOR READING SR WITH PVS. SAFETY PRECAUTIONS IN PLACE WITH BED IN LOWEST POSITION, CALL LIGHT WITHIN REACH, BREAKS ON, SIDE RAILS UP. WILL CONTINUE TO MONITOR THROUGHOUT THE NIGHT.
[2020-05-24 20:00] VITALS: BP 115/59
[2020-05-24 20:14] VITALS: BP 115/59
[2020-05-24] MEDS ORDERED: ENOXAPARIN SODIUM 40 MG/0.4 ML DISP.SYRIN SQ SCH (21:00)
[2020-05-25] VITALS: BP 129/47
[2020-05-25 00:43] VITALS: BP 129/47
[2020-05-25 04:00] VITALS: BP 105/51
[2020-05-25 04:02] VITALS: BP 129/47
--- NOTE | 2020-05-25 06:34 | NUR ---
SYSTEMS INTEGRATION MANAGER CLOSING NOTES PATIENT RESTING IN BED A/O X 4. ON 2L OF O2 WITH BREATHING EVEN AND UNLABORED, NO SOB NOTED. NO SIGNS OF ACUTE DISTRESS. NO COMPLAINTS OF PAIN OR DISCOMFORT. IV LOCATED ON L AC #20 SL. SAFETY PRECAUTIONS IN PLACE WITH BED IN LOWEST POSITION, CALL LIGHT WITHIN REACH, BREAKS ON, SIDE RAILS UP. ALL NEEDS ATTENDED TO. UNABLE TO COLLECT STOOL SAMPLE, PATIENT HAD NO BM THROUGHOUT THE NIGHT. WILL ENDORSE TO ONCOMING SHIFT ABOUT LEWIS.
--- NOTE | 2020-05-25 07:30 | NUR ---
CHIEF OF PLANNING NOTES PATIENT IS A/O X 4 AWAKE IN BED WITH NO SIGNS OF DISTRESS IN 2L OF NASAL CANNULA. IV L AC #20 SL INTACT AND PATENT. BED IS IN LOW POSITION WITH SIDE RAILS UP X 2 FOR SAFETY. CALL LIGHT WITHIN REACH. WILL CONTINUE TO MONITOR.
[2020-05-25 07:55] LABS: BASOPHILS # (AUTO) 0.1 /CMM (0.0-0.2); BASOPHILS % (AUTO) 1.4 % (0.0-2.0); EOSINOPHILS % (AUTO) 6.3 % (0.0-6.0); HEMATOCRIT 43 % (33-45); LYMPHOCYTES % (AUTO) 19.2 % (20.0-44.0); MEAN CORPUSCULAR HGB CONC 33 g/dl (31.0-36.0); MEAN CORPUSCULAR VOLUME 85 fL (82-100); MONOCYTES # (AUTO) 0.5 /CMM (0.1-1.30); MONOCYTES % (AUTO) 9.6 % (2.0-12.0); NEUTROPHILS # (AUTO) 3.4 /CMM (1.8-8.9); NEUTROPHILS % (AUTO) 63.5 % (43.0-81.0); PLATELET COUNT (AUTO) 133 /CMM (150-450); RED BLOOD CELL COUNT(AUTO) 5.05 MIL/uL (4.0-5.2); WHITE BLOOD COUNT (AUTO) 5.4 K/uL (4.3-11.0)
[2020-05-25 08:08] LABS: ALANINE AMINOTRANSFERASE 40 U/L (12-78); ALBUMIN 3.7 g/dL (3.4-5.0); ALKALINE PHOSPHATASE 67 U/L (46-116); ASPARTATE AMINOTRANSFERASE 27 U/L (15-37); BILIRUBIN,TOTAL 0.6 mg/dL (0.2-1.0); CALCIUM, SERUM 8.9 mg/dL (8.5-10.1); CARBON DIOXIDE 32 mmol/L (21-32); CHLORIDE 101 mmol/L (98-107); CREATININE 1.1 mg/dL (0.6-1.3); GLUCOSE 92 mg/dL (74-106); MAGNESIUM 1.9 mg/dL (1.8-2.4); POTASSIUM 3.3 mmol/L (3.5-5.1); SODIUM SERUM 140 mmol/L (136-145); TOTAL PROTEIN, SERUM 6.7 g/dL (6.4-8.2); UREA NITROGEN, BLOOD 15 mg/dL (7-18)
[2020-05-25] MEDS: SIMVASTATIN 20 MG TABLET PO SCH (08:44)
[2020-05-25] MEDS: SERTRALINE HCL 50 MG TABLET PO SCH (08:44)
[2020-05-25] MEDS: CALCIUM CARBONATE (1250) 500 MG TABLET PO SCH ×3 (08:44→17:02)
[2020-05-25] MEDS: LOSARTAN POTASSIUM 50 MG TABLET PO SCH (08:56)
[2020-05-25] MEDS: METOPROLOL TARTRATE 25 MG TABLET PO SCH ×2 (08:57→17:03)
[2020-05-25] MEDS: AMLODIPINE BESYLATE 10 MG TABLET PO SCH (08:57)
[2020-05-25] MEDS: FUROSEMIDE 40 MG/4 ML VIAL IV SCH ×3 (09:04→17:02)
[2020-05-25] MEDS: POTASSIUM CHLORIDE 20 MEQ TAB.PRT.SR PO SCH ×4 (09:04→12:29)
[2020-05-25 16:00] VITALS: BP 135/59
[2020-05-25 17:03] VITALS: BP 142/90
--- NOTE | 2020-05-25 18:55 | NUR ---
DINING SERVICE INSPECTOR CLOSED NOTES PATIENT IS A/O X 4 AWAKE IN BED RESTING WITH NO SIGNS OF DISTRESS IN 2L OF NASAL CANNULA. IV L AC #20G SL. SCHEDULED MEDS WERE GIVEN AND TOLERATED WELL. BED IS IN LOW POSITION WITH SIDE RAILS UP X 2 FOR SAFETY. CALL LIGHT WITHIN REACH. WILL ENDORSE TO THE NEXT SHIFT.
--- NOTE | 2020-05-25 19:17 | NUR ---
RN NOTES GAVE REPORT TO [facility] TO NURSE MOI.
--- NOTE | 2020-05-25 19:48 | NUR ---
SUPERVISOR ELECTRONICS INSPECTION NOTES PATIENT IS A/O X 4 WITH NO SIGNS OF DISTRESS AND NO SHORTNESS OF BREATH AND NO COMPLAIN OF PAIN. DISCHARGE EDUCATION AND INSTRUCTIONS WERE GIVEN. PATIENT VERBALIZED UNDERSTANDING. BELONGINGS WERE ACCOUNTED FOR AND PRESCRIPTION WAS GIVEN TO PATIENT.[facility] IS AWARE OF BEING DISCHARGE. PICKED UP BY TO AMBULANCE PERSONAL. LEFT VIA GURNEY IN A STABLE CONDITION.
== END 2020-05-25 19:45 | DRG 292 ==
LOC: ER 18:29 → TELE 23:48 → MED 05-25 10:02
PROVIDERS: ADMIT Nurse Practitioner Acute Care
DX: I11.0 Hypertensive heart disease with heart failure (principal); J98.11 Atelectasis; E66.2 Morbid (severe) obesity with alveolar hypoventilation; Z68.41 Body mass index [BMI] 40.0-44.9, adult; I50.33 Acute on chronic diastolic (congestive) heart failure; F42.9 Obsessive-compulsive disorder, unspecified; F32.9 Major depressive disorder, single episode, unspecified; R42 Dizziness and giddiness; R19.7 Diarrhea, unspecified; E78.5 Hyperlipidemia, unspecified; D64.9 Anemia, unspecified; Z96.651 Presence of right artificial knee joint; Z87.891 Personal history of nicotine dependence
CPT/HCPCS: 36415; 36600; 71045-TC; 71250-TC; 76536-TC; 80048-TC; 80053-TC; 80061-TC; 80076-TC; 83735-TC; 83880; 84100-TC; 84439-TC; 84443-TC; 84484-TC; 85025-TC; 85730-TC; 87081-TC; 93307-TC; 97116-TC; 97530-TC; G0378; J1650; J1940

== ENCOUNTER 2021-02-21 19:45 | Emergency (ER) | payer MEDICARE, OTHER ==
[~2021-02-21] VITALS: Ht 154.9 cm; Wt 97.5 kg
[~2021-02-21 19:45] MED LIST changes: +AMLO-213 PO; -CALC500T51 PO; +CALC500T53 PO; +CARB-300 PO; -DICY10AM2 PO; +LOSA50TA39 MT; +METO25TA6 PO; +SERT100T PO
--- NOTE | 2021-02-21 20:46 | NUR ---
ANANYA FROM [facility] TO ER BED 6. AAXO4. NOT IN RESP IDSTRESS, BREATHING EVEN AND UNLABORED. TALKING INFULL SENTENCES AND SATTING @ 95-96% ON RA. BROUGHT IN FOR DIFFICULTY BREATHING WHICH PT STATES "ON AND OFF" AND GOING ON "FOR AWHILE". PER PT, HE SAW THE DR AT THE FACILITY TODAY AND WAS TOLD SHE MILD HAVE FLUIDS IN THE LUNGS. DR. RUANO AT BEDSIDE FOR EVAL ORDERS RECEIVED, NOTED AND CARRIED OUT
[2021-02-21 21:02] LABS: BASOPHILS # (AUTO) 0.1 /CMM (0.0-0.2); BASOPHILS % (AUTO) 1.4 % (0.0-2.0); EOSINOPHILS % (AUTO) 5.6 % (0.0-6.0); HEMATOCRIT 45 % (33-45); HEMOGLOBIN 15.1 g/dL (11.5-14.8); LYMPHOCYTES # (AUTO) 1.6 /CMM (0.8-4.8); LYMPHOCYTES % (AUTO) 23.7 % (20.0-44.0); MEAN CORPUSCULAR HGB CONC 33 g/dl (31.0-36.0); MEAN CORPUSCULAR VOLUME 85 fL (82-100); MONOCYTES # (AUTO) 0.6 /CMM (0.1-1.30); MONOCYTES % (AUTO) 9.2 % (2.0-12.0); NEUTROPHILS # (AUTO) 4.1 /CMM (1.8-8.9); NEUTROPHILS % (AUTO) 60.1 % (43.0-81.0); PLATELET COUNT (AUTO) 144 /CMM (150-450); RED BLOOD CELL COUNT(AUTO) 5.36 MIL/uL (4.0-5.2); WHITE BLOOD COUNT (AUTO) 6.8 K/uL (4.3-11.0)
--- NOTE | 2021-02-21 21:05 | NUR ---
US AT BEDSIDE
[2021-02-21 21:19] LABS: CALCIUM, SERUM 9.8 mg/dL (8.5-10.1); CARBON DIOXIDE 31 mmol/L (21-32); CHLORIDE 104 mmol/L (98-107); CREATININE 0.9 mg/dL (0.6-1.3); GLUCOSE 92 mg/dL (74-106); SODIUM SERUM 142 mmol/L (136-145); UREA NITROGEN, BLOOD 16 mg/dL (7-18)
[2021-02-21 21:33] LABS: ALANINE AMINOTRANSFERASE 12 U/L (12-78); ALKALINE PHOSPHATASE 118 U/L (46-116); ASPARTATE AMINOTRANSFERASE 30 U/L (15-37); B-TYPE NATRIURETIC PEPTIDE 413 PG/ML (0-125); BILIRUBIN,DIRECT 0.1 mg/dL (0.0-0.2); BILIRUBIN,TOTAL 0.4 mg/dL (0.2-1.0); TOTAL PROTEIN, SERUM 7.4 g/dL (6.4-8.2)
--- NOTE | 2021-02-21 21:50 | NUR ---
SPOKE WITH MAHI FROM [facility], PT HAS [facility] ETA OF 0045.
--- NOTE | 2021-02-21 21:54 | NUR ---
CALLED [facility] FOR TRANSPORT AND WAS GIVEN AN ETA OF 75-90 MINUTES.
--- NOTE | 2021-02-21 22:35 | NUR ---
JUAQUIN, STAFF AT THE [facility] AWARE THAT THE PATIENT IS MEDICALLY CLEARED ABD GOING BACK TO THE FACILITY.
--- NOTE | 2021-02-21 23:28 | NUR ---
pt left on gurney with 2 emt at bedside on stable condition. report given to emt.
[2021-02-21 23:29] VITALS: BP 120/55
== END 2021-02-21 23:25 | disposition home or self-care (01) ==
LOC: ER 19:47
DX: R60.0 Localized edema (principal); I11.0 Hypertensive heart disease with heart failure; I50.9 Heart failure, unspecified; F42.9 Obsessive-compulsive disorder, unspecified; F90.9 Attention-deficit hyperactivity disorder, unspecified type; I25.10 Atherosclerotic heart disease of native coronary artery without angina pectoris; E78.5 Hyperlipidemia, unspecified; F32.9 Major depressive disorder, single episode, unspecified; G20 Parkinson's disease; Z90.49 Acquired absence of other specified parts of digestive tract; Z98.890 Other specified postprocedural states; Z79.899 Other long term (current) drug therapy
CPT/HCPCS: 36415; 71045-TC; 80048-TC; 80076-TC; 83735-TC; 83880; 84484-TC; 85025-TC; 85730-TC; 93970-TC

== ENCOUNTER 2021-05-04 20:37 | Emergency (ER) | payer MEDICARE, OTHER ==
[~2021-05-04] VITALS: Ht 157.5 cm; Wt 99.8 kg
--- NOTE | 2021-05-04 20:52 | NUR ---
urinecollected and sent to the lab.
--- NOTE | 2021-05-04 21:00 | NUR ---
pt to er bed 13 c/o feeling "sad, looking old". Patient also states states that she has been having on and off medial abdominal pain that comes and goes. Currently denies any pain. Patient is alert and oriented X4. patient uses walker to get around. Patient is breathing evenly and unlabored on room air. Connected to the monitor.
--- NOTE | 2021-05-04 21:00 | NUR ---
denies SI and HI.
--- NOTE | 2021-05-04 21:12 | NUR ---
blood collected by the casualty claims supervisor and sent to the lab.
[2021-05-04 21:19] LABS: BASOPHILS % (AUTO) 0.6 % (0.0-2.0); EOSINOPHILS % (AUTO) 5.8 % (0.0-6.0); HEMATOCRIT 41 % (33-45); HEMOGLOBIN 13.5 g/dL (11.5-14.8); LYMPHOCYTES # (AUTO) 1.3 K/uL (0.8-4.8); LYMPHOCYTES % (AUTO) 19.7 % (20.0-44.0); MEAN CORPUSCULAR HGB CONC 33 g/dl (31.0-36.0); MEAN CORPUSCULAR VOLUME 87 fL (82-100); MONOCYTES # (AUTO) 0.5 K/uL (0.1-1.30); MONOCYTES % (AUTO) 7.3 % (2.0-12.0); NEUTROPHILS # (AUTO) 4.3 K/uL (1.8-8.9); NEUTROPHILS % (AUTO) 66.6 % (43.0-81.0); PLATELET COUNT (AUTO) 146 K/uL (150-450); RED BLOOD CELL COUNT(AUTO) 4.77 MIL/uL (4.0-5.2); WHITE BLOOD COUNT (AUTO) 6.5 K/uL (4.3-11.0)
--- NOTE | 2021-05-04 21:21 | NUR ---
tato rapid collect and sent to the lab.
--- NOTE | 2021-05-04 21:38 | NUR ---
CALL FROM LAB, RAPID COVID NEGATIVE.
[2021-05-04 21:41] LABS: ALANINE AMINOTRANSFERASE 14 U/L (12-78); ALBUMIN 3.6 g/dL (3.4-5.0); ALKALINE PHOSPHATASE 101 U/L (46-116); ASPARTATE AMINOTRANSFERASE 16 U/L (15-37); BILIRUBIN,DIRECT 0.1 mg/dL (0.0-0.2); BILIRUBIN,TOTAL 0.4 mg/dL (0.2-1.0); CALCIUM, SERUM 9.6 mg/dL (8.5-10.1); CARBON DIOXIDE 30 mmol/L (21-32); CHLORIDE 106 mmol/L (98-107); CREATININE 1.2 mg/dL (0.6-1.3); GLUCOSE 130 mg/dL (74-106); LIPASE 127 U/L (73-393); POTASSIUM 3.8 mmol/L (3.5-5.1); SODIUM SERUM 143 mmol/L (136-145); TOTAL PROTEIN, SERUM 6.9 g/dL (6.4-8.2); UREA NITROGEN, BLOOD 12 mg/dL (7-18)
[2021-05-04 21:45] LABS: BILIRUBIN,URINE NEGATIVE (NEGATIVE); COLOR,URINE YELLOW (YELLOW); LEUKOCYTE ESTERASE ,URINE TRACE (NEGATIVE); NITRITE, URINE NEGATIVE (NEGATIVE); PROTEIN,URINE NEGATIVE (NEGATIVE); UGLUCOSE NEGATIVE (NEGATIVE); UROBILINOGEN,URINE 0.2 EU/dL (0.2)
[2021-05-04 21:48] LABS: ALCOHOL, BLOOD < 10 mg/dL (0-0)
[2021-05-04 21:52] LABS: BACTERIA,URINE 1+ /HPF (None Seen); RBC,URINE 0-2 /HPF (0-2)
[2021-05-04] MEDS ORDERED: CEFTRIAXONE 1GM BAG (ER ONLY) 50 ML IV ONE (22:30)
[2021-05-04] MEDS ORDERED: CEFTRIAXONE 1 G in IV D5W 50 ML IV ONE (22:30)
[2021-05-04] MEDS ORDERED: IV NS 0.9% 1,000 ML BAG IV ONE (22:30)
--- NOTE | 2021-05-04 22:54 | NUR ---
Jarrett alcala in [facility] - 05/05/21 at 0015 by SRINIVAS ZACHERY [id number]
[2021-05-04] MEDS ORDERED: CEPH500C2 PO (23:13)
--- NOTE | 2021-05-04 23:49 | NUR ---
Patient discharged to home in stable condition. Written and verbal after care instructions given. Patient verbalizes understanding of instruction.
--- NOTE | 2021-05-04 23:58 | NUR ---
CALL THE CAR TRIP NUMBER [phone] WILL CALL BACK FOR ETA
--- NOTE | 2021-05-05 01:17 | NUR ---
[facility] ETA [id number]
--- NOTE | 2021-05-05 03:25 | NUR ---
CALLED CHERIE FROM [id number] DELAY[facility]. ETA 15-20MINUTES.
--- NOTE | 2021-05-05 04:21 | NUR ---
[facility] WILL BE DELAYED [phone]
--- NOTE | 2021-05-05 06:21 | NUR ---
[facility] WILL BE DELAYED ANOTHER HOUR 1827
--- NOTE | 2021-05-05 06:36 | NUR ---
CALLED [facility] FOR BREAKFAST FOR PATIENT..
--- NOTE | 2021-05-05 08:36 | NUR ---
PATIENT ATE BREAKFAST, AND ASSISTED TO RESTROOM.
--- NOTE | 2021-05-05 08:52 | NUR ---
TRANSPORT WILL BE HERE IN [facility] PER DIEUDONNE
--- NOTE | 2021-05-05 10:15 | NUR ---
REPORT GIVEN TO ELECTRICAL SIGN SERVICER. PATIENT A/OX4, IN STABLE CONDITION. NO DISTRESS NOTED. PRESCRIPTION AND DISCHARGE DOCUMENTS GIVEN TO ELECTRICAL SIGN SERVICER.
[2021-05-05 10:47] VITALS: BP 128/77
== END 2021-05-05 10:47 ==
LOC: ER 20:42
DX: N39.0 Urinary tract infection, site not specified (principal); E86.0 Dehydration; Z79.899 Other long term (current) drug therapy; F42.9 Obsessive-compulsive disorder, unspecified; I11.9 Hypertensive heart disease without heart failure; E66.9 Obesity, unspecified; Z68.41 Body mass index [BMI] 40.0-44.9, adult; Z90.49 Acquired absence of other specified parts of digestive tract; F90.9 Attention-deficit hyperactivity disorder, unspecified type; Z20.822 Contact with and (suspected) exposure to COVID-19
CPT/HCPCS: 36415; 71045; 80048; 80076; 80143; 80307; 80320; 81001; 83690; 84484; 85025; 85730; 87077; 87086; 87186; 87426; 96365; 99284; J0696; C9803; G0480; J7060

== ENCOUNTER 2021-05-23 22:38 | Inpatient (IN) | payer MEDICARE, OTHER ==
[~2021-05-23] VITALS: Ht 157.5 cm; Wt 103.9 kg
[~2021-05-23 22:38] MED LIST changes: +CEPH500C2 PO
--- NOTE | 2021-05-23 22:55 | NUR ---
PATIENT [id number] FROM [facility] FOR SOB X 30MINS CORD CUTTER AND CHEST TIGHTNESS. PATIENT A/O X 4, RR EVEN AND UNLABORED, MONITORING FOR SOB. PATIENT CONNECTED TO HOSPITALITY HOUSEKEEPER AND POX.
[2021-05-23 22:57] LABS: BASOPHILS # (AUTO) 0.1 K/uL (0.0-0.2); BASOPHILS % (AUTO) 1.4 % (0.0-2.0); EOSINOPHILS % (AUTO) 5.2 % (0.0-6.0); HEMATOCRIT 43 % (33-45); HEMOGLOBIN 14.3 g/dL (11.5-14.8); LYMPHOCYTES # (AUTO) 1.3 K/uL (0.8-4.8); LYMPHOCYTES % (AUTO) 20.8 % (20.0-44.0); MEAN CORPUSCULAR HGB CONC 33 g/dl (31.0-36.0); MEAN CORPUSCULAR VOLUME 85 fL (82-100); MONOCYTES # (AUTO) 0.6 K/uL (0.1-1.30); MONOCYTES % (AUTO) 9.1 % (2.0-12.0); NEUTROPHILS # (AUTO) 3.9 K/uL (1.8-8.9); NEUTROPHILS % (AUTO) 63.5 % (43.0-81.0); PLATELET COUNT (AUTO) 166 K/uL (150-450); RED BLOOD CELL COUNT(AUTO) 5.09 MIL/uL (4.0-5.2); WHITE BLOOD COUNT (AUTO) 6.2 K/uL (4.3-11.0)
[2021-05-23 23:06] LABS: CARBON DIOXIDE 29 mmol/L (21-32); CHLORIDE 103 mmol/L (98-107); CREATININE 0.9 mg/dL (0.6-1.3); GLUCOSE 120 mg/dL (74-106); POTASSIUM 3.7 mmol/L (3.5-5.1); SODIUM SERUM 140 mmol/L (136-145); UREA NITROGEN, BLOOD 12 mg/dL (7-18)
--- NOTE | 2021-05-24 01:32 | NUR ---
COVID SWAB COLLECTED AND SENT TO LAB
--- NOTE | 2021-05-24 04:01 | NUR ---
tele bed: [phone]
--- NOTE | 2021-05-24 04:06 | NUR ---
CALLED TO GIVEN REPORT ON PATIENT, NURSE NOT AVAILABLE NOTIFIED TO CALL BACK.
--- NOTE | 2021-05-24 04:21 | NUR ---
REPORT GIVEN TO NALLELY HOLLAND
[2021-05-24] MEDS ORDERED: ACETAMINOPHEN 325 MG TABLET PO PRN (04:30)
[2021-05-24] MEDS ORDERED: ONDANSETRON HCL/PF 4 MG/2 ML VIAL IVP PRN (04:30)
[2021-05-24] MEDS ORDERED: ENOXAPARIN SODIUM 40 MG/0.4 ML DISP.SYRIN SQ SCH (04:30)
[2021-05-24] MEDS ORDERED: MAG HYDROX/AL HYDROX/SIMETH 30 ML UDC PO PRN (04:30)
[2021-05-24] MEDS ORDERED: MAGNESIUM HYDROXIDE 30 ML UDC PO PRN (04:30)
[2021-05-24] MEDS ORDERED: NITROGLYCERIN 0.4 MG/TAB BOTTLE SL PRN (04:30)
--- NOTE | 2021-05-24 04:41 | NUR ---
PATIENT TRANSFERRED UNDER ACLS PROTOCOL
[2021-05-24 04:45] VITALS: BP 154/82
--- NOTE | 2021-05-24 04:45 | NUR ---
COORDINATOR INTEGRATED MARKETINGLUMPIA WRAPPER MAKER NOTE PT TRANSPORTED VIA GURNEY TO UNIT AT THIS TIME. PT ADMITTED TO TELE UNDER TRISHA CORONA NP FOR ADMITTING DX OF CP R/O ACS. A/O X4. PT STABLE ON ROOM AIR. NO SOB OR S/S OF RESPIRATORY DISTRESS NOTED. PT ON EXTERNAL NEEDLE PUNCH MACHINE OPERATOR READING SR WITH TRIGEMINY AND PVC'S AT 100 BPM. PT HAS NO C/O PAIN OR DISCOMFORT AT THIS TIME. IV ACCESS IN LEFT AC #18. PT ORIENTED TO STAFF, ROOM, AND UNIT. SAFETY MEASURES MAINTAINED. BED IN LOWEST LOCKED POSITION, HOB ELEVATED, SIDE RAILS UP X2. CALL LIGHT AND TABLE WITHIN REACH. WILL CONTINUE TO MONITOR.
[2021-05-24 05:08] LABS: BASOPHILS # (AUTO) 0.1 K/uL (0.0-0.2); BASOPHILS % (AUTO) 1.3 % (0.0-2.0); EOSINOPHILS % (AUTO) 5.5 % (0.0-6.0); HEMATOCRIT 42 % (33-45); HEMOGLOBIN 14.1 g/dL (11.5-14.8); LYMPHOCYTES # (AUTO) 1.3 K/uL (0.8-4.8); LYMPHOCYTES % (AUTO) 20.2 % (20.0-44.0); MEAN CORPUSCULAR HGB CONC 34 g/dl (31.0-36.0); MEAN CORPUSCULAR VOLUME 85 fL (82-100); MONOCYTES # (AUTO) 0.5 K/uL (0.1-1.30); NEUTROPHILS # (AUTO) 4.4 K/uL (1.8-8.9); PLATELET COUNT (AUTO) 168 K/uL (150-450); RED BLOOD CELL COUNT(AUTO) 4.96 MIL/uL (4.0-5.2); WHITE BLOOD COUNT (AUTO) 6.7 K/uL (4.3-11.0)
[2021-05-24 05:24] LABS: CALCIUM, SERUM 8.9 mg/dL (8.5-10.1); CARBON DIOXIDE 28 mmol/L (21-32); CHLORIDE 106 mmol/L (98-107); GLUCOSE 103 mg/dL (74-106); MAGNESIUM 2.2 mg/dL (1.8-2.4); POTASSIUM 3.9 mmol/L (3.5-5.1); SODIUM SERUM 143 mmol/L (136-145); UREA NITROGEN, BLOOD 11 mg/dL (7-18)
[2021-05-24 05:28] LABS: CHOLESTEROL 149 mg/dL (<200); HDL CHOLESTEROL 61 mg/dL (40-60); LDL 67 mg/dL (0-99); TRIGLYCERIDES 194 mg/dL (30-150)
--- NOTE | 2021-05-24 07:12 | NUR ---
TEAM ASSISTANT CLOSING NOTE PT IS AWAKE IN BED. A/O X4. PT STABLE ON ROOM AIR. NO SOB OR S/S OF RESPIRATORY DISTRESS NOTED. PT ON EXTERNAL CLOSING SPECIALIST READING SR WITH TRIGEMINY AND PVC'S AT 100 BPM. PT HAS NO C/O PAIN OR DISCOMFORT AT THIS TIME. IV ACCESS IS INTACT, PATENT, AND FLUSHING WELL. ALL NEEDS HAVE BEEN MET. SAFETY PRECAUTIONS MAINTAINED AT ALL TIMES. BED IN LOWEST LOCKED POSITION, HOB ELEVATED, SIDE RAILS UP X2. CALL LIGHT AND TABLE WITHIN REACH. WILL ENDORSE TO ONCOMING NURSE FOR [facility].
[2021-05-24] MEDS ORDERED: PANTOPRAZOLE 40 MG TABLET.DR PO SCH (07:30)
[2021-05-24 07:52] VITALS: BP 139/77
[2021-05-24] MEDS: METOPROLOL TARTRATE 25 MG TABLET PO SCH ×2 (08:31→16:12)
[2021-05-24] MEDS: CARBIDOPA/LEVODOPA 25/100 MG 1 UDTAB PO SCH ×3 (08:31→16:11)
[2021-05-24] MEDS: HYDROCORTISONE 2.5% LOTION 59 ML BOTTLE TP SCH ×2 (08:36→16:12)
[2021-05-24] MEDS ORDERED: AMLODIPINE BESYLATE 10 MG TABLET PO SCH (09:00)
[2021-05-24] MEDS ORDERED: SERTRALINE HCL 50 MG TABLET PO SCH (09:00)
[2021-05-24] MEDS ORDERED: ASPIRIN 81 MG TAB.CHEW PO SCH (09:00)
[2021-05-24] MEDS ORDERED: LOSARTAN POTASSIUM 50 MG TABLET PO SCH (09:00)
[2021-05-24] MEDS ORDERED: ASPI-1169 PO (11:31)
[2021-05-24] MEDS ORDERED: CT SWABBABLE VALVE TRANS SET 1 EA INFUS.SET MC ONE (13:53)
[2021-05-24] MEDS ORDERED: IOHEXOL-350 100 ML VIAL IV ONE (13:53)
[2021-05-24] MEDS ORDERED: NITROGLYCERIN 0.4 MG/TAB BOTTLE ONE (14:19)
[2021-05-24] MEDS ORDERED: METOPROLOL TARTRATE INJ 5 MG/5 ML AMPUL ONE ×2 (14:19→14:37)
[2021-05-24] MEDS: METOPROLOL TARTRATE INJ 5 MG/5 ML AMPUL IVP PRN ×9 (14:20→15:00)
[2021-05-24] MEDS ORDERED: NITROGLYCERIN 0.4 MG/TAB BOTTLE SL ONE (14:30)
[2021-05-24 15:55] VITALS: BP 106/59
[2021-05-24 16:12] VITALS: BP 106/59
--- NOTE | 2021-05-24 19:19 | NUR ---
IV LAC 18G SAFELY REMOVED
--- NOTE | 2021-05-24 20:49 | NUR ---
PATIENT WAS BEING PICKED UP BY AMBULANCE AT AROUND 1930. PER REPORTS FROM [facility], D/C PACKET INSTRUCTIONS ALREADY GIVEN TO THE PATIENT. IV REMOVED BY [facility].
[2021-05-24] MEDS ORDERED: SIMVASTATIN 20 MG TABLET PO SCH (22:00)
[2021-05-24] MEDS ORDERED: FLUVOXAMINE MALEATE 50 MG TABLET PO SCH (22:00)
== END 2021-05-24 19:30 | disposition home or self-care (01) | DRG 392 ==
LOC: ER 22:40 → TELE 05-24 04:03
DX: K21.9 Gastro-esophageal reflux disease without esophagitis (principal); I50.32 Chronic diastolic (congestive) heart failure; Z68.41 Body mass index [BMI] 40.0-44.9, adult; I11.0 Hypertensive heart disease with heart failure; E66.9 Obesity, unspecified; E66.01 Morbid (severe) obesity due to excess calories; E78.5 Hyperlipidemia, unspecified; F42.9 Obsessive-compulsive disorder, unspecified; F90.9 Attention-deficit hyperactivity disorder, unspecified type; M17.0 Bilateral primary osteoarthritis of knee; F32.9 Major depressive disorder, single episode, unspecified; Z96.659 Presence of unspecified artificial knee joint; Z20.822 Contact with and (suspected) exposure to COVID-19
CPT/HCPCS: 36415; 71045-TC; 75574; 80048-TC; 80061-TC; 83735-TC; 83880; 84484-TC; 85025-TC; 87081-TC; 93307-TC; G0378; J1650; J3490; Q9967

== ENCOUNTER 2023-02-18 19:11 | Emergency (ER) | payer MEDICARE, OTHER ==
[~2023-02-18] VITALS: Ht 154.9 cm; Wt 103.9 kg
[~2023-02-18 19:11] MED LIST changes: +ASPI-1169 PO; -CEPH500C2 PO
[2023-02-18] MEDS ORDERED: MECLIZINE HCL 25 MG TABLET ONE (20:12)
--- NOTE | 2023-02-18 20:18 | NUR ---
PT BROUGHT IN ER WITH RA, A/O X 3, DENIES PAIN. C/O WEAKNESS AND DIZZINESS. DENIES ANY FALL.
--- NOTE | 2023-02-18 20:25 | NUR ---
PT CAME BACK FORM CT HEAD
[2023-02-18] MEDS ORDERED: MECLIZINE HCL 25 MG TABLET PO ONE (20:30)
--- NOTE | 2023-02-18 20:30 | NUR ---
ANTIVERT 25 MG PO GIVEN FOR DIZZNESS.
[2023-02-18 20:34] LABS: BASOPHILS # (AUTO) 0.1 K/uL (0.0-0.2); BASOPHILS % (AUTO) 1.2 % (0.0-2.0); EOSINOPHILS % (AUTO) 5.9 % (0.0-6.0); HEMATOCRIT 41 % (33-45); HEMOGLOBIN 13.5 g/dL (11.5-14.8); LYMPHOCYTES # (AUTO) 1.4 K/uL (0.8-4.8); LYMPHOCYTES % (AUTO) 22.9 % (20.0-44.0); MEAN CORPUSCULAR HGB CONC 33 g/dl (31.0-36.0); MEAN CORPUSCULAR VOLUME 84 fL (82-100); MONOCYTES # (AUTO) 0.6 K/uL (0.1-1.30); MONOCYTES % (AUTO) 10.7 % (2.0-12.0); NEUTROPHILS # (AUTO) 3.6 K/uL (1.8-8.9); NEUTROPHILS % (AUTO) 59.3 % (43.0-81.0); PLATELET COUNT (AUTO) 143 K/uL (150-450); RED BLOOD CELL COUNT(AUTO) 4.91 MIL/uL (4.0-5.2)
[2023-02-18 20:47] LABS: CALCIUM, SERUM 9.1 mg/dL (8.5-10.1); CARBON DIOXIDE 32 mmol/L (21-32); CHLORIDE 105 mmol/L (98-107); CREATININE 0.9 mg/dL (0.6-1.3); GLUCOSE 128 mg/dL (74-106); POTASSIUM 3.9 mmol/L (3.5-5.1); SODIUM SERUM 141 mmol/L (136-145); UREA NITROGEN, BLOOD 13 mg/dL (7-18)
[2023-02-18 21:00] LABS: ALANINE AMINOTRANSFERASE 30 U/L (12-78); ALBUMIN 3.6 g/dL (3.4-5.0); ALKALINE PHOSPHATASE 100 U/L (46-116); ASPARTATE AMINOTRANSFERASE 23 U/L (15-37); BILIRUBIN,DIRECT 0.1 mg/dL (0.0-0.2); BILIRUBIN,TOTAL 0.5 mg/dL (0.2-1.0); TOTAL PROTEIN, SERUM 6.9 g/dL (6.4-8.2)
--- NOTE | 2023-02-18 21:30 | NUR ---
PT IS RESTING IN BED FALL ASLEEP, AROUSABLE. DENIES ANY DIZZINESS.
--- NOTE | 2023-02-18 22:36 | NUR ---
[facility] CALLED 75-90 MINUTE ETA
--- NOTE | 2023-02-19 01:00 | NUR ---
TRANSFERRED BACK TO THE FACILITY WITH BELONGINGS IN STABLE CONDITION
[2023-02-19 02:32] VITALS: BP 121/81
== END 2023-02-19 02:32 | disposition home or self-care (01) ==
LOC: ER 19:13
DX: R42 Dizziness and giddiness (principal); G20 Parkinson's disease; I10 Essential (primary) hypertension; E66.9 Obesity, unspecified; Z90.49 Acquired absence of other specified parts of digestive tract; Z98.890 Other specified postprocedural states; Z79.899 Other long term (current) drug therapy; Z79.82 Long term (current) use of aspirin
CPT/HCPCS: 99285; 70450; 71045; 93005; 85025; 80048; 80076; 36415; 84484; 83880; J8597

== ENCOUNTER 2024-06-29 10:30 | Emergency (ER) | payer MEDICARE, OTHER ==
[~2024-06-29] VITALS: Ht 154.9 cm; Wt 94.3 kg
[2024-06-29 10:33] VITALS: BP 169/79; TEMP 97.5; O2SAT 98
[2024-06-29] MEDS ORDERED: ACETAMINOPHEN 325 MG TABLET ONE (12:14)
[2024-06-29] MEDS: ACETAMINOPHEN 325 MG TABLET PO ONE (12:18)
[2024-06-29 12:26] LABS: ALANINE AMINOTRANSFERASE 20 U/L (12-78); ALBUMIN 3.3 g/dL (3.4-5.0); ALKALINE PHOSPHATASE 103 U/L (46-116); ASPARTATE AMINOTRANSFERASE 10 U/L (15-37); BILIRUBIN,DIRECT 0.2 mg/dL (0.0-0.2); BILIRUBIN,TOTAL 0.7 mg/dL (0.2-1.0); CALCIUM, SERUM 9.5 mg/dL (8.5-10.1); CARBON DIOXIDE 33 mmol/L (21-32); CHLORIDE 104 mmol/L (98-107); CREATININE 0.8 mg/dL (0.6-1.3); GLUCOSE 94 mg/dL (74-106); LIPASE 36 U/L (16-77); POTASSIUM 3.7 mmol/L (3.5-5.1); SODIUM SERUM 140 mmol/L (136-145); TOTAL PROTEIN, SERUM 6.8 g/dL (6.4-8.2); UREA NITROGEN, BLOOD 15 mg/dL (7-18)
[2024-06-29 12:33] LABS: BASOPHILS # (AUTO) 0.1 K/uL (0.0-0.2); BASOPHILS % (AUTO) 1.3 % (0.0-2.0); EOSINOPHILS # (AUTO) 0.3 K/uL (0.0-0.7); EOSINOPHILS % (AUTO) 4.2 % (0.0-6.0); HEMATOCRIT 43 % (33-45); HEMOGLOBIN 14.3 g/dL (11.5-14.8); LYMPHOCYTES # (AUTO) 1.2 K/uL (0.8-4.8); LYMPHOCYTES % (AUTO) 20.9 % (20.0-44.0); MEAN CORPUSCULAR HEMOGLOBIN 29 PG (26.0-33.0); MEAN CORPUSCULAR HGB CONC 33 g/dl (31.0-36.0); MEAN CORPUSCULAR VOLUME 86 fL (82-100); MONOCYTES # (AUTO) 0.5 K/uL (0.1-1.30); MONOCYTES % (AUTO) 8.2 % (2.0-12.0); NEUTROPHILS # (AUTO) 3.9 K/uL (1.8-8.9); NEUTROPHILS % (AUTO) 65.4 % (43.0-81.0); PLATELET COUNT (AUTO) 143 K/uL (150-450); RED BLOOD CELL COUNT(AUTO) 4.98 MIL/uL (4.0-5.2); WHITE BLOOD COUNT (AUTO) 5.9 K/uL (4.3-11.0)
== END 2024-06-29 15:00 ==
LOC: ER 10:32
DX: R10.84 Generalized abdominal pain (principal); I10 Essential (primary) hypertension; Z98.890 Other specified postprocedural states
CPT/HCPCS: 36415; 80048-TC; 80076-TC; 83690-TC; 85025-TC

== ENCOUNTER 2024-12-15 13:40 | Inpatient (IN) | payer MEDICARE, OTHER ==
[~2024-12-15] VITALS: Ht 154.9 cm; Wt 94.3 kg
[2024-12-15] MEDS ORDERED: ONDANSETRON HCL/PF 4 MG/2 ML VIAL ONE (14:06)
[2024-12-15] MEDS: ONDANSETRON HCL/PF 4 MG/2 ML VIAL IVP ONE (14:12)
[2024-12-15] MEDS: IV NS 0.9% 500 ML BAG IV ONE (14:15)
[2024-12-15 15:04] LABS: BASOPHILS % (AUTO) 0.3 % (0.0-2.0); EOSINOPHILS # (AUTO) 0.2 K/uL (0.0-0.7); EOSINOPHILS % (AUTO) 1.6 % (0.0-6.0); HEMATOCRIT 45 % (33-45); HEMOGLOBIN 15.3 g/dL (11.5-14.8); LYMPHOCYTES # (AUTO) 0.2 K/uL (0.8-4.8); LYMPHOCYTES % (AUTO) 2.2 % (20.0-44.0); MEAN CORPUSCULAR HEMOGLOBIN 28 PG (26.0-33.0); MEAN CORPUSCULAR HGB CONC 34 g/dl (31.0-36.0); MEAN CORPUSCULAR VOLUME 84 fL (82-100); MONOCYTES # (AUTO) 0.5 K/uL (0.1-1.30); MONOCYTES % (AUTO) 4.2 % (2.0-12.0); NEUTROPHILS # (AUTO) 9.9 K/uL (1.8-8.9); NEUTROPHILS % (AUTO) 91.7 % (43.0-81.0); PLATELET COUNT (AUTO) 132 K/uL (150-450); RED BLOOD CELL COUNT(AUTO) 5.38 MIL/uL (4.0-5.2); RED CELL DISTRIBUTION WIDTH 14.8 % (11.5-15.0); WHITE BLOOD COUNT (AUTO) 10.8 K/uL (4.3-11.0)
[2024-12-15 15:13] LABS: ALANINE AMINOTRANSFERASE 29 U/L (12-78); ALKALINE PHOSPHATASE 111 U/L (46-116); ASPARTATE AMINOTRANSFERASE 21 U/L (15-37); BILIRUBIN,DIRECT 0.3 mg/dL (0.0-0.2); BILIRUBIN,TOTAL 0.9 mg/dL (0.2-1.0); CALCIUM, SERUM 9.4 mg/dL (8.5-10.1); CARBON DIOXIDE 32 mmol/L (21-32); CHLORIDE 105 mmol/L (98-107); GLUCOSE 166 mg/dL (74-106); LIPASE 31 U/L (16-77); POTASSIUM 3.9 mmol/L (3.5-5.1); SODIUM SERUM 143 mmol/L (136-145); TOTAL PROTEIN, SERUM 7.2 g/dL (6.4-8.2); UREA NITROGEN, BLOOD 16 mg/dL (7-18)
[2024-12-15] MEDS ORDERED: DIPHENOXYLATE PO (16:20)
[2024-12-15] MEDS ORDERED: POTA10CA43 PO (16:20)
[2024-12-15] MEDS ORDERED: METO-357 PO (16:20)
[2024-12-15] MEDS ORDERED: LISI20TA30 PO (16:20)
[2024-12-15] MEDS ORDERED: OXYB5TAB16 PO (16:20)
[2024-12-15] MEDS ORDERED: MAGN250T10 PO (16:20)
[2024-12-15] MEDS ORDERED: PANT40TA2 PO (16:20)
[2024-12-15] MEDS ORDERED: CYAN100020 SL (16:20)
[2024-12-15] MEDS ORDERED: ALLO100T PO (16:20)
[2024-12-15] MEDS ORDERED: ACETAMINOPHEN 325 MG TABLET PO PRN (18:00)
[2024-12-15] MEDS ORDERED: MAGNESIUM HYDROXIDE 30 ML UDC PO PRN (18:00)
[2024-12-15] MEDS ORDERED: MAG HYDROX/AL HYDROX/SIMETH 30 ML UDC PO PRN (18:00)
[2024-12-15 18:43] LABS: APPEARANCE,URINE SLIGHTLY CLOUDY (CLEAR); BILIRUBIN,URINE 1+ (NEGATIVE); BLOOD, URINE 3+ Ery/uL (NEGATIVE); COLOR,URINE YELLOW (YELLOW); KETONES,URINE NEGATIVE (NEGATIVE); LEUKOCYTE ESTERASE ,URINE NEGATIVE (NEGATIVE); NITRITE, URINE NEGATIVE (NEGATIVE); PH,URINE 5.5 (5.0-8.0); PROTEIN,URINE 2+ mg/dl (NEGATIVE); UGLUCOSE NEGATIVE (NEGATIVE); UROBILINOGEN,URINE 0.2 EU/dL (0.2)
[2024-12-15 19:02] LABS: RBC,URINE 51-80 /HPF (0-2)
[2024-12-15 19:03] LABS: ADD URINE CULTURE NO; BACTERIA,URINE Few /HPF (None Seen); MUCUS,URINE Few /LPF (None Seen); SQUAMOUS EPITHELIAL CELL,UR Moderate /HPF (None Seen)
[2024-12-15 19:08] LABS: HYALINE CASTS, URINE Rare /LPF (None Seen)
[2024-12-15 22:00] VITALS: BP 149/75; TEMP 98.4; O2SAT 98
[2024-12-15] MEDS: FLUVOXAMINE MALEATE 50 MG TABLET PO SCH (22:19)
[2024-12-15] MEDS: METOPROLOL SUCCINATE 50 MG TAB.SR.24H PO SCH (22:19)
[2024-12-15] MEDS: CARBIDOPA/LEVODOPA 25/100 MG 1 UDTAB PO SCH (22:20)
[2024-12-15] MEDS: LISINOPRIL (20MG) 20 MG TABLET PO SCH (22:20)
[2024-12-15] MEDS: OXYBUTYNIN CHLORIDE 5 MG TABLET PO SCH (22:20)
[2024-12-15] MEDS: ENOXAPARIN SODIUM 40 MG/0.4 ML DISP.SYRIN SQ SCH (22:24)
[2024-12-15] MEDS: IV NS 0.9% 1,000 ML IV PRN (22:57)
[2024-12-16 04:00] VITALS: BP 155/75; TEMP 98.1; O2SAT 95
[2024-12-16 06:43] LABS: BASOPHILS % (AUTO) 0.5 % (0.0-2.0); EOSINOPHILS # (AUTO) 0.1 K/uL (0.0-0.7); EOSINOPHILS % (AUTO) 0.9 % (0.0-6.0); HEMATOCRIT 41 % (33-45); HEMOGLOBIN 13.7 g/dL (11.5-14.8); LYMPHOCYTES # (AUTO) 0.5 K/uL (0.8-4.8); LYMPHOCYTES % (AUTO) 7.5 % (20.0-44.0); MEAN CORPUSCULAR HEMOGLOBIN 28 PG (26.0-33.0); MEAN CORPUSCULAR HGB CONC 33 g/dl (31.0-36.0); MEAN CORPUSCULAR VOLUME 85 fL (82-100); MONOCYTES # (AUTO) 0.4 K/uL (0.1-1.30); MONOCYTES % (AUTO) 6.6 % (2.0-12.0); NEUTROPHILS # (AUTO) 5.5 K/uL (1.8-8.9); NEUTROPHILS % (AUTO) 84.5 % (43.0-81.0); PLATELET COUNT (AUTO) 114 K/uL (150-450); RED BLOOD CELL COUNT(AUTO) 4.87 MIL/uL (4.0-5.2); RED CELL DISTRIBUTION WIDTH 14.9 % (11.5-15.0); WHITE BLOOD COUNT (AUTO) 6.5 K/uL (4.3-11.0)
[2024-12-16 06:56] LABS: CALCIUM, SERUM 8.2 mg/dL (8.5-10.1); CREATININE 0.8 mg/dL (0.6-1.3); MAGNESIUM 1.9 mg/dL (1.8-2.4); PHOSPHORUS 3.5 mg/dL (2.5-4.9); POTASSIUM 3.3 mmol/L (3.5-5.1)
[2024-12-16] MEDS: CALCIUM CARBONATE (1250) 500 MG TABLET PO SCH (08:07)
[2024-12-16] MEDS: MAGNESIUM OXIDE 400 MG TABLET PO SCH (08:08)
[2024-12-16] MEDS: CYANOCOBALAMIN 500 MCG TABLET PO SCH (08:08)
[2024-12-16] MEDS: PANTOPRAZOLE 40 MG TABLET.DR PO SCH (08:08)
[2024-12-16] MEDS: SERTRALINE HCL 50 MG TABLET PO SCH (08:08)
[2024-12-16] MEDS: ALLOPURINOL 100 MG TABLET PO SCH (08:08)
[2024-12-16] MEDS: AMLODIPINE BESYLATE 10 MG TABLET PO SCH (08:09)
[2024-12-16] MEDS: SIMVASTATIN 20 MG TABLET PO SCH (08:09)
[2024-12-16] MEDS: POTASSIUM CHLORIDE 10 MEQ TABLET.SA PO SCH (08:14)
[2024-12-16] MEDS ORDERED: PANTOPRAZOLE 40 MG VIAL IV SCH (09:00)
[2024-12-16] MEDS: POTASSIUM CHLORIDE 20 MEQ TAB.PRT.SR PO SCH (09:32)
[2024-12-16 11:19] LABS: THYROID STIMULATING HORMONE 0.64 uIU/mL (0.358-3.74)
[2024-12-16 12:00] VITALS: BP 120/50; TEMP 98.1; O2SAT 95
[2024-12-16 20:00] VITALS: BP 125/81; TEMP 98.1; O2SAT 96
[2024-12-16] MEDS: ONDANSETRON HCL/PF 4 MG/2 ML VIAL IVP PRN (23:04)
[2024-12-17] VITALS: BP 142/72; TEMP 98.8; O2SAT 96
[2024-12-17 04:00] VITALS: BP 137/85; TEMP 97.7; O2SAT 95
[2024-12-17 09:33] VITALS: BP 124/68
== END 2024-12-17 17:40 | DRG 74 ==
LOC: ER 13:53 → TELE1 19:14 → TELE-TD 12-16 07:07 → TELE1 12-16 09:40 → MEDSG1 12-17 09:51
PROVIDERS: ADMIT Nurse Practitioner Acute Care; ATTEND Nurse Practitioner Acute Care
DX: E11.43 Type 2 diabetes mellitus with diabetic autonomic (poly)neuropathy (principal); D68.59 Other primary thrombophilia; G20.A1 Parkinson's disease without dyskinesia, without mention of fluctuations; R62.7 Adult failure to thrive; I11.0 Hypertensive heart disease with heart failure; I50.9 Heart failure, unspecified; F42.9 Obsessive-compulsive disorder, unspecified; Z90.49 Acquired absence of other specified parts of digestive tract; Z96.653 Presence of artificial knee joint, bilateral; Z98.890 Other specified postprocedural states; Z79.899 Other long term (current) drug therapy; E66.01 Morbid (severe) obesity due to excess calories; E78.5 Hyperlipidemia, unspecified; Z68.39 Body mass index [BMI] 39.0-39.9, adult; K31.84 Gastroparesis; K52.9 Noninfective gastroenteritis and colitis, unspecified
CPT/HCPCS: 36415; 71045-TC; 80048-TC; 80061-TC; 80076-TC; 81001; 82962-TC; 83690-TC; 83735-TC; 84100-TC; 84439-TC; 84443-TC; 84484-TC; 85025-TC; 87081-TC; 97110-TC; 97116-TC; 97530-TC; G0378; J1650; J2405; J7030